=== PATIENT | female | born 1965 | race Caucasian/White ===

== ENCOUNTER 2023-07-20 13:18 | Outpatient (OUT) | payer BC, SELFPAY ==
--- NOTE | 2023-07-20 13:27 | MM_ITS ---
Patient: BELKYS HERNANDEZ Exam Date: 07/20/2023 : 1965 Gender:F Ordering : DR Lauro Fagan . Admission #: [id number] Family : Order #: [id number] CLICK HERE TO VIEW EXAM RADIOLOGY REPORT PROCEDURE: MM TOMOSYNTHESIS SCREENING BI COMPARISON: MG MAMM DX 3D RT CAD, 07/06/2021. MG MAMM SCREEN 3D COURTNEY CAD, 07/18/2022. INDICATIONS: Screening Calculator Name NCI Breast Cancer Risk Assessment Tool 5 Year Breast Cancer Risk 1.90% Lifetime Breast Cancer Risk 12.00% Personal Breast Cancer No Personal Ovarian Cancer No Treatments None Family Cancers Grandmother-paternal with ovarian cancer at age ~72; Aunt-paternal with uterine cancer at age ~72; Mother with colon cancer at age ~75; Father with colon cancer at age ~64; Aunt-maternal with liver cancer at age ~65. LOCATION: [facility] BREAST COMPOSITION: Heterogeneously dense,which may obscure small masses. FINDINGS: DIAGNOSTIC CATEGORY 2--BENIGN FINDING. NO CHANGE FROM COMPARISON. Scattered benign-appearing nodules are present. Scattered benign-appearing calcifications are present. Scattered benign-appearing lymph nodes are present. RIGHT BREAST: No significant suspicious finding. Stable micro clip marker upper outer quadrant, anterior breast LEFT BREAST: No significant suspicious finding. RECOMMENDATIONS: ROUTINE MAMMOGRAM AND CLINICAL EVALUATION IN 12 MONTHS. PLEASE NOTE: A NORMAL MAMMOGRAM DOES NOT EXCLUDE THE POSSIBILITY OF BREAST CANCER. A CLINICALLY SUSPICIOUS PALPABLE LUMP SHOULD BE BIOPSIED. Dictated by: Camden Contreras MD on 07/21/2023 at 08:54 Approved by: Camden Contreras MD on 07/21/2023 at 08:56
== END 2023-07-20 13:19 | disposition home or self-care (01) ==
LOC: MAMMO 13:22
PROVIDERS: PCP Family Medicine; Visit Provider Family Medicine
DX: Z12.31 Encounter for screening mammogram for malignant neoplasm of breast (principal); Z80.0 Family history of malignant neoplasm of digestive organs; Z80.41 Family history of malignant neoplasm of ovary; Z80.8 Family history of malignant neoplasm of other organs or systems
CPT/HCPCS: 77063; 77067

== ENCOUNTER 2023-11-13 10:53 | Outpatient (OUT) | payer BC, SELFPAY ==
[2023-11-13 11:17] LABS: Basophils Percent Auto 0.4 % (0.2-2.0); Eosinophils Absolute Auto 0.1 10^3/uL (0.0-0.7); Eosinophils Percent Auto 2.3 % (0.9-7.0); Hematocrit 42.8 % (36.0-48.0); Hemoglobin 13.6 g/dL (12.0-16.0); Immature Granulocytes Abs Auto 0.02 10^3/uL (0.00-0.03); Immature Granulocytes Pct Auto 0.4 % (0.0-0.5); Lymphocytes Absolute Auto 1.2 10^3/uL (1.2-3.8); Lymphocytes Percent Auto 21.1 % (20.5-60.0); Mean Corpuscular HGB Conc 31.8 g/dL (29.9-35.2); Mean Corpuscular Hemoglobin 29.1 pg (26.7-34.0); Mean Corpuscular Volume 91.5 fL (81.0-99.0); Mean Platelet Volume 9.6 fL (9.5-13.5); Monocytes Absolute Auto 0.5 10^3/uL (0.3-0.8); Monocytes Percent Auto 8.6 % (1.7-12.0); Neutrophils Absolute Auto 3.7 10^3/uL (1.4-6.5); Neutrophils Percent Auto 67.2 % (43.0-75.0); Platelet Count 231 10^3/uL (150-450); Red Blood Count 4.68 10^6/uL (4.20-5.40); White Blood Count 5.6 10^3/uL (4.0-11.0)
[2023-11-13 11:31] LABS: Estimated Average Glucose 114 mg/dL; Glycohemoglobin A1C 5.6 % (4.5-6.2)
[2023-11-13 12:12] LABS: Alanine Aminotransferase 60 U/L (14-59); Albumin Level 3.8 g/dL (3.4-5.0); Alkaline Phosphatase 124 U/L (46-116); Anion Gap 12.5; Aspartate Amino Transferase 24 U/L (15-37); BUN Creatinine Ratio 20.7; Bilirubin Total 0.4 mg/dL (0.2-1.0); Calcium 9.3 mg/dL (8.5-10.1); Carbon Dioxide 28.6 mmol/L (21.0-32.0); Chloride 104 mmol/L (98-107); Chol HDL Ratio 4.3; Cholesterol 231 mg/dL (<=200); Estimated GFR (African America >60 (>=60); Estimated GFR (Non-African Ame >60 (>=60); Free T3 2.45 pg/mL (2.18-3.98); Globulin 3.8 g/dL; Glucose 89 mg/dL (74-106); HDL Cholesterol 54 mg/dL (40-60); Potassium 4.1 mmol/L (3.5-5.1); Sodium 141 mmol/L (136-145); Thyroid Stimulating Hormone 1.929 uIU/mL (0.358-3.740); Total Protein 7.6 g/dL (6.4-8.2); Triglycerides 223 mg/dL (<=150); VLDL CHOLESTEROL 44.6 mg/dL
== END 2023-11-13 10:54 | disposition home or self-care (01) ==
LOC: LAB 10:53
PROVIDERS: PCP Family Medicine; Visit Provider Family Medicine
DX: Z00.00 Encounter for general adult medical examination without abnormal findings (principal); E78.5 Hyperlipidemia, unspecified; R73.09 Other abnormal glucose
CPT/HCPCS: 36415; 80053; 80061; 83036; 84436; 84443; 84481; 85025

== ENCOUNTER 2023-11-23 13:07 | Outpatient (OUT) | payer BC, SELFPAY ==
--- OUTSIDE RECORDS SUMMARY | 2023-11-23 13:10 | XMS_ITS | CCD ---
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 Name Role Phone RUDOLPH, DR LEVY Admitting Unavailable DR MILDRED GALDAMEZ Primary Care Unavailable RUDOLPH, DR LEVY Consulting Unavailable RUDOLPH, DR LEVY Attending Unavailable DANTE, DR JOSE LUIS Clements Consulting Unavailable DR MILDRED GADLAMEZ Primary Care Unavailable DR MILDRED GALDAMEZ Consulting Unavailable RUDOLPH, DR LEVY Attending Unavailable RUDOLPH, DR LEVY Admitting Unavailable Allergies Allergy Classification Reported Allergen(s) Allergy Type Date of Onset Reaction(s) Facility (1 source) Penicillins Drug allergy (disorder) 12-14-2015 [facility] Repository Problems Problem Classification Problem Date Documented Da te Episodic/Chronic Other screening for suspected conditions (not mental disorders or infectious disease) (4 sources) Encounter for screening mammogram for malignant neoplasm of breast; Translations: [ENC SCR MAMMO MALIG NEOPLASM BREAST] Onset: 07-18-2022 Episodic Residual codes; unclassified (1 source) Family history of malignant neoplasm of ovary; Translations: [FAM HX MALIGNANT NEOPLASM OVARY] Onset: 07-20-2022 Episodic Residual codes; unclassified (1 source) Family history of malignant neoplasm of digestive organs; Translations: [FAM HX MALIG NEOPLASM DIGESTIV ORGN] Onset: 07-20-2022 Episodic Residual codes; unclassified (1 source) Family history of malignant neoplasm of other organs or systems; Translations: [FAM HX MALIG NEOPLASM OTH ORGN/SYS] Onset: 07-20-2022 Episodic Results Test Name Value Interpretation Reference Range Facility CBC AUTO DIFFon 11-11-2022 BASO # 0.0 103/ul Normal 0.0-0.1 [facility] Comment on above: Performed By: #### C BC #### [facility] [address] [address] [address] Celsa Patterson Basophils/100 WBC (Bld) 0.5 % Normal 0.2-2.0 [facility] Comment on above: Performed By: #### C BC #### [facility] [address] [place] [address] Dr. Celsa Patterson EO # 0.1 103/ul Normal 0.0-0.7 [facility] Comment on above: Performed By: #### C BC #### [facility] [address] [place] [address] Dr. Celsa Patterson Eosinophils/100 WBC (Bld) 1.0 % Normal 0.9-7.0 [facility] Comment on above: Performed By: #### C BC #### [facility] [address] [place] [address] Dr. Celsa Patterson Erythrocyte distribution width (RBC) [Ratio] 13.4 % Normal 11.0-15.0 [facility] Comment on above: Performed By: #### C BC #### [facility] [address] [place] [address] Dr. Celsa Patterson Hematocrit (Bld) [Volume fraction] 43.1 % Normal 36.0-48.0 [facility] Comment on above: Performed By: #### C BC #### [facility] [address] [place] [address] Dr. Celsa Patterson Hemoglobin (Bld) [Mass/Vol] 14.1 g/dL Normal 12.0-16.0 [facility] Comment on above: Performed By: #### C BC #### [facility] [address] [place] [address] Dr. Celsa Patterson IG # 0.03 10e3/ul Normal 0.00-0.03 [facility] Comment on above: Performed By: #### C BC #### [facility] [address] [place] [address] Dr. Celsa Patterson IG % 0.5 % Normal 0.0-0.5 [facility] Comment on above: Performed By: #### C BC #### [facility] [address] [place] [address] Dr. Celsa Patterson LYMPH # 1.0 103/ul Critically low 1.2-3.8 [facility] Comment on above: Performed By: #### C BC #### [facility] [address] [place] [address] Dr. Celsa Patterson Lymphocytes/100 WBC (Bld) 15.8 % Critically low 20.5-60.0 [facility] Comment on above: Performed By: #### C BC #### [facility] [address] [place] [address] Dr. Celsa Patterson MANUAL DIFF REQ NO Normal [facility] Comment on above: Performed By: #### C BC #### [facility] [address] [place] [address] Dr. Celsa Patterson MCH (RBC) [Entitic mass] 29.0 pg Normal 26.7-34.0 [facility] Comment on above: Performed By: #### C BC #### [facility] [address] [place] [address] Dr. Celsa Patterson MCHC (RBC) [Mass/Vol] 32.7 g/dL Normal 29.9-35.2 [facility] Comment on above: Performed By: #### C BC #### [facility] [address] [place] [address] Dr. Celsa Patterson MCV (RBC) [Entitic vol] 88.7 fL Normal 81.0-99.0 [facility] Comment on above: Performed By: #### C BC #### [facility] [address] [place] [address] Dr. Celsa Patterson MONO # 0.5 103/ul Normal 0.3-0.8 [facility] Comment on above: Performed By: #### C BC #### [facility] [address] [place] [address] Dr. Celsa Patterson Monocytes/100 WBC (Bld) 8.7 % Normal 1.7-12.0 [facility] Comment on above: Performed By: #### C BC #### [facility] [address] [place] [address] Dr. Celsa Patterson NEUT # 4.5 103/ul Normal 1.4-6.5 [facility] Comment on above: Performed By: #### C BC #### [facility] [address] [address] [address] Celsa Patterson Neutrophils/100 WBC (Bld) 73.5 % Normal 43.0-75.0 [facility] Comment on above: Performed By: #### C BC #### [facility] [address] [address] [address] Celsa Patterson Platelet mean volume (Bld) [Entitic vol] 9.6 fL Normal 9.5-13.5 [facility] Comment on above: Performed By: #### C BC #### [facility] [address] [place] [address] Dr. Celsa Patterson PLT 259 103/ul Normal 150-450 [facility] Comment on above: Performed By: #### C BC #### [facility] [address] [place] [address] Dr. Celsa Patterson RBC 4.86 106/ul Normal 4.20-5.40 [facility] Comment on above: Performed By: #### C BC #### [facility] [address] [place] [address] Dr. Celsa Patterson WBC 6.1 103/ul Normal 4.0-11.0 [facility] Comment on above: Performed By: #### C BC #### [facility] [address] [place] [address] Dr. Celsa Patterson FREE THYROXINE INDEX T7on FTI 2.55 Normal 1.30-4.50 [facility] Comment on above: Performed By: #### C MP, T7, TSH, LIPID #### [facility] [address] [place] [address] Dr. Celsa Patterson T3U 30.0 % Normal 30.0-39.0 [facility] Comment on above: Performed By: #### C MP, T7, TSH, LIPID #### [facility] [address] [place] [address] Dr. Celsa Patterson T4 [Mass/Vol] 8.50 ug/dL Normal 4.80-13.90 [facility] Comment on above: Performed By: #### C MP, T7, TSH, LIPID #### [facility] [address] [place] [address] Dr. Celsa Patterson GLYCOHEMOGLOBIN A1Con 2021 ADA RECOMMENDATION SEE BELOW Normal [facility] Comment on above: Result Comment: ADA RECOMMENDED LIMIT 4.0 - 6.0 ADA THERAPEUTIC TARGET < 7.0 ACTION SUGGESTED > 7.0 Performed By: #### A 1C #### [facility] [address] [place] [address] Dr. Celsa Patterson Glucose [Mass/Vol] 108 mg/dL Normal [facility] Comment on above: Performed By: #### A 1C #### [facility] [address] [place] [address] Dr. Celsa Patterson HbA1c (Bld) [Mass fraction] 5.4 % Normal 4.5-6.2 [facility] Comment on above: Performed By: #### A 1C #### [facility] [address] [place] [address] Dr. Celsa Patterson IRONon 11-11-2022 Iron [Mass/Vol] 76.0 ug/dL Normal 50.0-170.0 [facility] Comment on above: Performed By: #### I CLINT LYNCH #### [facility] [address] [place] [address] Dr. Celsa Patterson LIPID PROFILEon 11-11-2022 CHOL-HDL RATIO NORM SEE BELOW Normal [facility] Comment on above: Result Comment: 3.3 - 4.4 LOW RISK 4.4 - 7.1 AVERAGE RISK 7.1 - 11.0 MODERATE RISK >11.0 HIGH RISK Performed By: #### C MP, T7, TSH, LIPID #### [facility] [address] [place] [address] Dr. Celsa Patterson Cholesterol [Mass/Vol] 227 mg/dL Critically high <=200 [facility] Comment on above: Performed By: #### C MP, T7, TSH, LIPID #### [facility] [address] [place] [address] Dr. Celsa Patterson Cholesterol in HDL [Mass/Vol] 63 mg/dL Critically high 40-60 [facility] Comment on above: Performed By: #### C MP, T7, TSH, LIPID #### [facility] [address] [address] [address] Celsa Patterson Cholesterol in LDL [Mass/Vol] 138.0 mg/dL Normal [facility] Comment on above: Performed By: #### C MP, T7, TSH, LIPID #### [facility] [address] [address] [address] Celsa Patterson Cholesterol.total/Cho lesterol in HDL [Mass ratio] 3.6 {ratio} Normal [facility] Comment on above: Performed By: #### C MP, T7, TSH, LIPID #### [facility] [address] [address] [address] Celsa Patterson HDL NORMAL > or = 60 mg/dl - LOW CARDIOVASCULAR RISK <40 mg/dl - HIGH CARDIOVASCULAR RISK Normal [facility] Comment on above: Performed By: #### C MP, T7, TSH, LIPID #### [facility] [address] [address] [address] Celsa Patterson LDL CALC NORMAL SEE BELOW Normal [facility] Comment on above: Result Comment: <100 mg/dl OPTIMAL 100 - 129 mg/dl NEAR OR ABOVE OPTIMAL 130 - 159 mg/dl BORDERLINE HIGH 160 - 189 mg/dl HIGH >190 mg/dl VERY HIGH Performed By: #### C MP, T7, TSH, LIPID #### [facility] [address] [address] [address] Celsa Patterson Triglyceride [Mass/Vol] 130 mg/dL Normal <=150 [facility] Comment on above: Performed By: #### C MP, T7, TSH, LIPID #### [facility] [address] [address] [address] Celsa Patterson VLDL CALC 26.0 mg/dL Normal [facility] Comment on above: Performed By: #### C MP, T7, TSH, LIPID #### [facility] [address] [address] [address] Celsa Patterson PROF 14(COMP METB)on 022 Albumin [Mass/Vol] 4.3 g/dL Normal 3.4-5.0 [facility] Comment on above: Performed By: #### C MP, T7, TSH, LIPID #### [facility] [address] [address] [address] Celsa Patterson Albumin/Globulin [Mass ratio] 1.2 {ratio} Normal [facility] Comment on above: Performed By: #### C MP, T7, TSH, LIPID #### [facility] [address] [place] [address] Dr. Celsa Patterson ALP [Catalytic activity/Vol] 126 U/L Critically high 46-116 [facility] Comment on above: Performed By: #### C MP, T7, TSH, LIPID #### [facility] [address] [place] [address] Dr. Celsa Patterson ALT [Catalytic activity/Vol] 43 U/L Normal 14-59 [facility] Comment on above: Performed By: #### C MP, T7, TSH, LIPID #### [facility] [address] [place] [address] Dr. Celsa Patterson Anion gap [Moles/Vol] 14.4 mmol/L Normal [facility] Comment on above: Performed By: #### C MP, T7, TSH, LIPID #### [facility] [address] [place] [address] Dr. Celsa Patterson AST [Catalytic activity/Vol] 26 U/L Normal 15-37 [facility] Comment on above: Performed By: #### C MP, T7, TSH, LIPID #### [facility] [address] [place] [address] Dr. Celsa Patterson Bilirubin [Mass/Vol] 0.5 mg/dL Normal 0.2-1.0 [facility] Comment on above: Performed By: #### C MP, T7, TSH, LIPID #### [facility] [address] [place] [address] Dr. Celsa Patterson Calcium [Mass/Vol] 9.4 mg/dL Normal 8.5-10.1 [facility] Comment on above: Performed By: #### C MP, T7, TSH, LIPID #### [facility] [address] [address] [address] Celsa Patterson Chloride [Moles/Vol] 104 mmol/L Normal 98-107 [facility] Comment on above: Performed By: #### C MP, T7, TSH, LIPID #### [facility] [address] [address] [address] Celsa Patterson CO2 [Moles/Vol] 27.8 mmol/L Normal 21.0-32.0 [facility] Comment on above: Performed By: #### C MP, T7, TSH, LIPID #### [facility] [address] [address] [address] Celsa Patterson Creatinine [Mass/Vol] 1.04 mg/dL Critically high 0.55-1.02 [facility] Comment on above: Performed By: #### C MP, T7, TSH, LIPID #### [facility] [address] [place] [address] Dr. Celsa Patterson EGFR-AF TAIWANESE >60 Normal >=60 [facility] Comment on above: Performed By: #### C MP, T7, TSH, LIPID #### [facility] [address] [place] [address] Dr. Celsa Patterson EGFR-NON AF TAIWANESE 55 mL/min/1.73m2 Critically low >=60 [facility] Comment on above: Performed By: #### C MP, T7, TSH, LIPID #### [facility] [address] [place] [address] Dr. Celsa Patterson Globulin (S) [Mass/Vol] 3.5 g/dL Normal [facility] Comment on above: Performed By: #### C MP, T7, TSH, LIPID #### [facility] [address] [place] [address] Dr. Celsa Patterson Glucose [Mass/Vol] 84 mg/dL Normal 74-106 [facility] Comment on above: Performed By: #### C MP, T7, TSH, LIPID #### [facility] [address] [place] [address] Dr. Celsa Patterson Potassium [Moles/Vol] 4.2 mmol/L Normal 3.5-5.1 [facility] Comment on above: Performed By: #### C MP, T7, TSH, LIPID #### [facility] [address] [address] [address] Celsa Patterson Protein [Mass/Vol] 7.8 g/dL Normal 6.4-8.2 [facility] Comment on above: Performed By: #### C MP, T7, TSH, LIPID #### [facility] [address] [address] [address] Celsa Patterson Sodium [Moles/Vol] 142 mmol/L Normal 136-145 [facility] Comment on above: Performed By: #### C MP, T7, TSH, LIPID #### [facility] [address] [place] [address] Dr. Celsa Patterson Urea nitrogen [Mass/Vol] 20.0 mg/dL Critically high 7.0-18.0 [facility] Comment on above: Performed By: #### C MP, T7, TSH, LIPID #### [facility] [address] [place] [address] Dr. Celsa Patterson Urea nitrogen/Creatinine [Mass ratio] 19.2 mg/mg Normal [facility] Comment on above: Performed By: #### C MP, T7, TSH, LIPID #### [facility] [address] [place] [address] Dr. Celsa Patterson TSHon 11-11-2022 TSH 3.238 uIU/mL Normal 0.358-3.[address] [facility] Comment on above: Performed By: #### C MP, T7, TSH, LIPID #### [facility] [address] [place] [address] Dr. Celsa Patterson VITAMIN D 25 OHon 11-11-2022 VIT D 25-OH 12.1 ng/mL Normal [facility] Comment on above: Performed By: #### I CRIS, VITAD #### [facility] [address] [place] [address] Dr. Celsa Patterson VIT D RANGES SEE BELOW Normal [facility] Comment on above: Result Comment: <20 ng/mL Vit D deficient 20 - <30 ng/mL Vit D insufficient 30 - 100 ng/mL Vit D sufficient >100 ng/mL Potential Toxicity Performed By: #### I CRIS VITAD #### [facility] [address] [address] [address] Celsa Patterson MG MAMM SCREEN 3D COURTNEY CADon 07-18-2022 MG MAMM SCREEN 3D COURTNEY CAD Patient: BELKYS HERNANDEZ Exam Date: 07/18/2022 : 1965 Gender:F Ordering : DR MILDRED GALDAMEZ . Admission #: [id number] Family : Order #: [id number] CLICK HERE TO VIEW EXAM RADIOLOGY REPORT PROCEDURE: MAMMOGRAM SCREENING 3D BILATERAL CAD COMPARISON: MG MAMM SCREEN COURTNEY W CAD, 12/31/2020. MG MAMM DX 3D RT CAD, 07/06/2021. MAMMO POST BIOPSY RIGHT, 01/08/2021. INDICATIONS: Screening mammography Calculator Name NCI Breast Cancer Risk Assessment Tool 5 Year Breast Cancer Risk 1.80% Lifetime Breast Cancer Risk 12.20% Personal Breast Cancer No Personal Ovarian Cancer No Treatments None Family Cancers Grandmother-paternal with ovarian cancer at age 72; Aunt-paternal with uterine cancer at age 72; Mother with colon cancer at age 75; Father with colon cancer at age 64; Aunt-maternal with liver cancer at age 65. LOCATION: [facility] BREAST COMPOSITION: Heterogeneously dense,which may obscure small masses. FINDINGS: DIAGNOSTIC CATEGORY 2--BENIGN FINDING: RIGHT BREAST: No significant suspicious finding. Stable biopsy marker clip anterior lower-outer quadrant. No significant change has occurred. LEFT BREAST: No significant suspicious finding. No significant change has occurred. RECOMMENDATIONS: ROUTINE MAMMOGRAM AND CLINICAL EVALUATION IN 12 MONTHS. PLEASE NOTE: A NORMAL MAMMOGRAM DOES NOT EXCLUDE THE POSSIBILITY OF BREAST CANCER. A CLINICALLY SUSPICIOUS PALPABLE LUMP SHOULD BE BIOPSIED. Dictated by: Jose Luis Waddell M.D. on 07/18/2022 at 11:03 Approved by: Jose Luis Waddell M.D. on 07/18/2022 at 11:07 Normal [facility] COVID-19 Antigenon COVID-19 Antigen Healthcare Worker?: N Reference Range: Negative Negative results, from patients with symptom onset beyond five days, should be treated as presumptive and confirmation with a molecular assay, if necessary, for patient management, may be performed. Negative results do not rule out COVID-19 and should not be used as the sole basis for treatment or patient management decisions, including infection control decisions. Negative results should be considered in the context of a patient's recent exposures, history and the presence of clinical signs and symptoms consistent with COVID-19. The [facility] SARS Antigen [employer] does not differentiate between SARS-CoV and SARS-CoV-2. This test was developed and its performance characteristic determined by [employer] and validated at [facility]. This test has not been FDA cleared or approved. This test has been authorized by FDA under an Emergency Use Authorization (EUA). This test has been validated in accordance with the FDA's Guidance Document (Policy for Diagnostics Testing in Laboratories Certified to Perform High Complexity Testing under CLIA prior to Emergency Use Authorization for Coronavirus Disease-2019 during the Public Health Emergency) issued on February 27, 2020. This test is only authorized for the duration of time the declaration that circumstances exist justifying the authorization of the emergency use of in vitro diagnostic tests for detection of SARS-CoV-2 virus and/or diagnosis of COVID-19 infection under section 564(b)(1) of the Act, 21 U.S.C. 360bbb-3(b)(1), unless the authorization is terminated or revoked sooner. SARS-CoV+SARS-CoV-2 (COVID-19) Ag [Presence] in Respiratory specimen by Rapid immunoassay Negative for SARS Antigen by [employer] PERFORMED BY: [place] [address] PATHOLOGIST DIAGRAMMER JENNI HERNANDEZ M.D. Normal [facility] Comment on above: Performed By: #### S OFIANEG, COVID-19 DENISSE #### [facility] [address] [facility] Ag Negativeon 05-16-20 22 [facility]isse Ag Negative Negative Normal Negative [facility] Comment on above: Result Comment: This is a duplicate [facility] SARS Antigen (TARIQ) result to be used for statistical tracking purpose only. PERFORMED BY: [place] [address] PATHOLOGIST DIAGRAMMER JENNI HERNANDEZ M.D. Performed By: #### S BRYANNA COVID-19 DENISSE #### [facility] [address] Encounters Encounter Date Encounter Type Care Provider Facility Start: 11-16-2022 Encounter for genera l adult medical examination without abnormal findings DR MILDRED GALDAMEZ [facility] Start: 11-11-2022 End: 11-12-[address] MILDRED GALDAMEZ Facility:[facility] Start: 11-11-2022 End: 11-12-2022 Encounter for general adult medical examination without abnormal findings DR MILDRED GALDAMEZ Facility:[facility] Start: 07-18-2022 End: 07-19-[address] MILDRED GALDAMEZ Facility:[facility] Payers Date Payer Category Payer Unknown [id number] 1965 Unknown [id number] 1957 Unknown [id number] Summary Purpose Family History No Family History Records FoundNo Family History Records Found Advance Directives No Advanced Directives Records FoundNo Advanced Directives Records Found Additional Source Comments INFORMATION SOURCE (unrecogn ized section and content) DATE CREATED AUTHOR 05/23/2022 [facility] DATE CREATED AUTHOR AUTHOR'S ORGANIZ ATION 11/18/2022 [facility] FOR RECORDS PERTAINING TO PATIENTS WHO ARE OR HAVE BEEN ENROLLED IN A CHEMICAL DEPENDENCY/SUBSTANCEABUSE PROGRAM, SOME INFORMATION MAY BE OMITTED. This clinical summary was aggregated from multiple sources. Caution should be exercised in using it in the provision of clinical care. This summary normalizes information from multiple sources, and as a consequence, information in this document may materially change the coding, format and clinical context of patient data. In addition, data may be omitted in some cases. CLINICAL DECISIONS SHOULD BE BASED ON THE PRIMARY CLINICAL RECORDS. [employer] provides no warranty or guarantee of the accuracy or completeness of information in this document.
[2023-11-23 13:45] LABS: Alanine Aminotransferase 66 U/L (14-59); Albumin Level 3.7 g/dL (3.4-5.0); Alkaline Phosphatase 137 U/L (46-116); Aspartate Amino Transferase 24 U/L (15-37); Bilirubin Direct 0.1 mg/dL (0.0-0.2); Bilirubin Total 0.2 mg/dL (0.2-1.0); Globulin 3.7 g/dL; Total Protein 7.4 g/dL (6.4-8.2)
[2023-11-24 11:08] LABS: HBsAg Screen Negative (Negative); HCV Ab Non Reactive (Non Reactive); Hep A Ab, IgM Negative (Negative); Hep B Core Ab, IgM Negative (Negative)
== END 2023-11-23 13:08 | disposition home or self-care (01) ==
LOC: LAB 13:07
PROVIDERS: PCP Family Medicine; Visit Provider Family Medicine
DX: R79.89 Other specified abnormal findings of blood chemistry (principal)
CPT/HCPCS: 36415; 80074; 80076

== ENCOUNTER 2023-11-30 12:54 | Outpatient (OUT) | payer BC, SELFPAY ==
--- NOTE | 2023-11-30 12:57 | US_ITS ---
The [address] [address] Patient Name: BELKYS HERNANDEZ MRN: [id number] date: 1965 Sex: F Assigned Patient Location: [place] Current Patient Location: [place] Accession/Order Number: [id number] Exam Date: 11/30/2023 13:03 Report Date: 11/30/2023 14:57 At the request of: MILDRED GALDAMEZ Procedure: US right upper quadrant EXAM: US right upper quadrant HISTORY: elevated liver function tests R79.89 COMPARISON: None. TECHNIQUE: Grayscale, color and Doppler FINDINGS: The liver is normal in size and contour. Diffuse increase in echotexture. 1 cm area of hypoechogenicity adjacent to the gallbladder, focal fatty infiltration favored. Hepatopedal flow in the main portal vein. The gallbladder is normal in size. Negative sonographic Richards sign. The wall measures 1 mm. The common bile duct measures 2.3 mm. The visualized pancreas is normal. The right kidney is normal measuring 10.5 x 5.0 x 4.3 cm US/US right upper quadrant IMPRESSION: Increased hepatic echotexture suggesting hepatic steatosis Electronically authenticated by: FRANCISCO JAVIER RUDD Date: 11/30/2023 14:57
== END 2023-11-30 12:55 | disposition home or self-care (01) ==
LOC: US 12:54
PROVIDERS: PCP Family Medicine; Visit Provider Family Medicine
DX: R79.89 Other specified abnormal findings of blood chemistry (principal)
CPT/HCPCS: 76705

== ENCOUNTER 2024-08-15 09:33 | Outpatient (OUT) | payer BC, SELFPAY ==
--- NOTE | 2024-08-15 09:37 | MM_ITS ---
Patient Name: BELKYS HERNANDEZ MR#: [id number] : 1965 Exam Date: 08/15/2024 Ordering Doctor: DR Lauro Fagan . RADIOLOGY REPORT PROCEDURE: MM TOMOSYNTHESIS SCREENING BI COMPARISON: MG MAMM SCREEN 3D COURTNEY CAD, 07/18/2022. MM TOMOSYNTHESIS SCREENING BI, 07/20/2023. INDICATIONS: screening for malignant neoplasm of breast Calculator Name NCI Breast Cancer Risk Assessment Tool 5 Year Breast Cancer Risk 2.00% Lifetime Breast Cancer Risk 11.70% Personal Breast Cancer No Personal Ovarian Cancer No Treatments None Family Cancers Grandmother-paternal with ovarian cancer at age ~72; Aunt-paternal with uterine cancer at age ~72; Mother with colon cancer at age ~75; Father with colon cancer at age ~64; Aunt-maternal with liver cancer at age ~65. LOCATION: [facility] BREAST COMPOSITION: The breasts are heterogeneously dense,which may obscure small masses. FINDINGS: DIAGNOSTIC CATEGORY 2--BENIGN FINDING. NO CHANGE FROM COMPARISON. Scattered benign-appearing calcifications are present. Scattered benign-appearing lymph nodes are present. Scattered benign-appearing nodules are present. RIGHT BREAST: No significant suspicious finding. LEFT BREAST: No significant suspicious finding. RECOMMENDATIONS: ROUTINE MAMMOGRAM AND CLINICAL EVALUATION IN 12 MONTHS. PLEASE NOTE: A NORMAL MAMMOGRAM DOES NOT EXCLUDE THE POSSIBILITY OF BREAST CANCER. A CLINICALLY SUSPICIOUS PALPABLE LUMP SHOULD BE BIOPSIED. Dictated by: Camden Contreras MD on 08/15/2024 at 10:40 Approved by: Camden Contreras MD on 08/15/2024 at 10:41
--- OUTSIDE RECORDS SUMMARY | 2024-08-15 09:37 | XMS_ITS | CCD ---
Author Organization [facility] Care Team Providers Care Bobcat Operator Name Role Phone DR MILDRED GALDAMEZ Admitting Unavailable DR MILDRED GALDAMEZ Primary Care Unavailable DR MILDRED GALDAMEZ Consulting Unavailable DR MILDRED GALDAMEZ Attending Unavailable DR JOSE LUIS WADDELL Consulting Unavailable DR MILDRED GALDAMEZ Primary Care Unavailable DR MILDRED GALDAMEZ Consulting Unavailable DR MILDRED GALDAMEZ Attending Unavailable DR MILDRED GALDAMEZ Admitting Unavailable Allergies Allergy Classification Reported Allergen(s) Allergy Type Date of Onset Reaction(s) Facility (1 source) Penicillins Drug allergy (disorder) 12-14-2015 [facility] Repository Problems Problem Classification Problem Date Documented [...] 11-11-2022 BASO # 0.0 103/ul Normal 0.0-0.1 [facility] Comment on above: Performed By: #### C BC #### [facility] [address] [place], [place] [address] Dr. Celsa Patterson Basophils/100 WBC (Bld) 0.5 % Normal 0.2-2.0 [facility] Comment on above: Performed By: #### C BC #### [facility] [address] [place] [address] Dr. Celsa Patterson EO # 0.1 103/ul Normal 0.0-0.7 [facility] Comment on above: Performed By: #### C BC #### [facility] [address] [place] [address] Dr. Celsa Patterson Eosinophils/100 WBC (Bld) 1.0 % Normal 0.9-7.0 [facility] Comment on above: Performed By: #### C BC #### [facility] [address] [place] [address] Dr. Celsa Patterson Erythrocyte distribution width (RBC) [Ratio] 13.4 % Normal 11.0-15.0 [facility] Comment on above: Performed By: #### C BC #### [facility] [address] [place] [address] Dr. Celsa Patterson Hematocrit (Bld) [Volume fraction] 43.1 % Normal 36.0-48.0 [facility] Comment on above: Performed By: #### C BC #### [facility] [address] [place] [address] Dr. Celsa Patterson Hemoglobin (Bld) [Mass/Vol] 14.1 g/dL Normal 12.0-16.0 [facility] Comment on above: Performed By: #### C BC #### [facility] [address] [place] [address] Dr. Celsa Patterson IG # 0.03 10e3/ul Normal 0.00-0.03 [facility] Comment on above: Performed By: #### C BC #### [facility] [address] [place] [address] Dr. Celsa Patterson IG % 0.5 % Normal 0.0-0.5 [facility] Comment on above: Performed By: #### C BC #### [facility] [address] [place] [address] Dr. Celsa Patterson LYMPH # 1.0 103/ul Critically low 1.2-3.8 [facility] Comment on above: Performed By: #### C BC #### [facility] [address] [place] [address] Dr. Celsa Patterson Lymphocytes/100 WBC (Bld) 15.8 % Critically low 20.5-60.0 [facility] Comment on above: Performed By: #### C BC #### [facility] [address] [place] [address] Dr. Celas Patterson MANUAL DIFF REQ NO Normal [facility] Comment on above: Performed By: #### C BC #### [facility] [address] [place] [address] Dr. Celsa Patterson MCH (RBC) [Entitic mass] 29.0 pg Normal 26.7-34.0 [facility] Comment on above: Performed By: #### C BC #### [facility] [address] [place] [address] Dr. Celsa Patterson MCHC (RBC) [Mass/Vol] 32.7 g/dL Normal 29.9-35.2 [facility] Comment on above: Performed By: #### C BC #### [facility] [address] [place] [address] Dr. Celsa Patterson MCV (RBC) [Entitic vol] 88.7 fL Normal 81.0-99.0 [facility] Comment on above: Performed By: #### C BC #### [facility] [address] [place] [address] Dr. Celsa Patterson MONO # 0.5 103/ul Normal 0.3-0.8 [facility] Comment on above: Performed By: #### C BC #### [facility] [address] [place] [address] Dr. Celsa Patterson Monocytes/100 WBC (Bld) 8.7 % Normal 1.7-12.0 [facility] Comment on above: Performed By: #### C BC #### [facility] [address] [place] [address] Dr. Celsa Patterson NEUT # 4.5 103/ul Normal 1.4-6.5 [facility] Comment on above: Performed By: #### C BC #### [facility] [address] [place] [address] Dr. Celsa Patterson Neutrophils/100 WBC (Bld) 73.5 % Normal 43.0-75.0 [facility] Comment on above: Performed By: #### C BC #### [facility] [address] [place] [address] Dr. Celsa Patterson Platelet mean volume (Bld) [Entitic vol] 9.6 fL Normal 9.5-13.5 [facility] Comment on above: Performed By: #### C BC #### [facility] [address] [place] [address] Dr. Celsa Patterson PLT 259 103/ul Normal 150-450 [facility] Comment on above: Performed By: #### C BC #### [facility] [address] [place] [address] Dr. Celsa Patterson RBC 4.86 106/ul Normal 4.20-5.40 [facility] Comment on above: Performed By: #### C BC #### [facility] [address] [place] [address] Dr. Celsa Patterson WBC 6.1 103/ul Normal 4.0-11.0 [facility] Comment on above: Performed By: #### C BC #### [facility] [address] [place] [address] Dr. Celsa Patterson FREE THYROXINE INDEX T7on FTI 2.55 Normal 1.30-4.50 [facility] Comment on above: Performed By: #### C MP, T7, TSH, LIPID #### [facility] [address] [place] [address] Dr. Celsa Patterson T3U 30.0 % Normal 30.0-39.0 [facility] Comment on above: Performed By: #### C MP, T7, TSH, LIPID #### [facility] [address] [place] [address] Dr. Celsa Patterson T4 [Mass/Vol] 8.50 ug/dL Normal 4.80-13.90 [facility] Comment on above: Performed By: #### C MP, T7, TSH, LIPID #### [facility] [address] [place] [address] [address] Celsa Patterson GLYCOHEMOGLOBIN A1Con 2021 ADA RECOMMENDATION SEE BELOW Normal [facility] Comment on above: Result Comment: ADA RECOMMENDED LIMIT 4.0 - 6.0 ADA THERAPEUTIC TARGET < 7.0 ACTION SUGGESTED > 7.0 Performed By: #### A 1C #### [facility] [address] [place] [address] [address] Celsa Patterson Glucose [Mass/Vol] 108 mg/dL Normal [facility] Comment on above: Performed By: #### A 1C #### [facility] [address] [place] [address] Dr. Celsa Patterson HbA1c (Bld) [Mass fraction] 5.4 % Normal 4.5-6.2 [facility] Comment on above: Performed By: #### A 1C #### [facility] [address] [place] [address] Dr. Celsa Patterson IRONon 11-11-2022 Iron [Mass/Vol] 76.0 ug/dL Normal 50.0-170.0 [facility] Comment on above: Performed By: #### I CLINT LYNCH #### [facility] [address] [place] [address] Dr. Celsa Patterson LIPID PROFILEon 11-11-2022 CHOL-HDL RATIO NORM SEE BELOW Normal [facility] Comment on above: Result Comment: 3.3 - 4.4 LOW RISK 4.4 - 7.1 AVERAGE RISK 7.1 - 11.0 MODERATE RISK >11.0 HIGH RISK Performed By: #### C MP, T7, TSH, LIPID #### [facility] [address] [place] [address] [address] Celsa Patterson Cholesterol [Mass/Vol] 227 mg/dL Critically high <=200 [facility] Comment on above: Performed By: #### C MP, T7, TSH, LIPID #### [facility] [address] [place] [address] Dr. Celsa Patterson Cholesterol in HDL [Mass/Vol] 63 mg/dL Critically high 40-60 [facility] Comment on above: Performed By: #### C MP, T7, TSH, LIPID #### [facility] [address] [place] [address] [address] Celsa Patterson Cholesterol in LDL [Mass/Vol] 138.0 mg/dL Normal [facility] Comment on above: Performed By: #### C MP, T7, TSH, LIPID #### [facility] [address] [place] [address] [address] Celsa Patterson Cholesterol.total/Cho lesterol in HDL [Mass ratio] 3.6 {ratio} Normal [facility] Comment on above: Performed By: #### C MP, T7, TSH, LIPID #### [facility] [address] [place] [address] [address] Celsa Patterson HDL NORMAL > or = 60 mg/dl - LOW CARDIOVASCULAR RISK <40 mg/dl - HIGH CARDIOVASCULAR RISK Normal [facility] Comment on above: Performed By: #### C MP, T7, TSH, LIPID #### [facility] [address] [place] [address] [address] Celsa Patterson LDL CALC NORMAL SEE BELOW Normal [facility] Comment on above: Result Comment: <100 mg/dl OPTIMAL 100 - 129 mg/dl NEAR OR ABOVE OPTIMAL 130 - 159 mg/dl BORDERLINE HIGH 160 - 189 mg/dl HIGH >190 mg/dl VERY HIGH Performed By: #### C MP, T7, TSH, LIPID #### [facility] [address] [place] [address] [address] Celsa Patterson Triglyceride [Mass/Vol] 130 mg/dL Normal <=150 [facility] Comment on above: Performed By: #### C MP, T7, TSH, LIPID #### [facility] [address] [place] [address] [address] Celsa Patterson VLDL CALC 26.0 mg/dL Normal [facility] Comment on above: Performed By: #### C MP, T7, TSH, LIPID #### [facility] [address] [place] [address] [address] Celsa Patterson PROF 14(COMP METB)on 022 Albumin [Mass/Vol] 4.3 g/dL Normal 3.4-5.0 [facility] Comment on above: Performed By: #### C MP, T7, TSH, LIPID #### [facility] [address] [place] [address] Dr. Celsa Patterson Albumin/Globulin [Mass ratio] 1.2 {ratio} Normal [facility] Comment on above: Performed By: #### C MP, T7, TSH, LIPID #### [facility] [address] [place] [address] Dr. Celsa Patterson ALP [Catalytic activity/Vol] 126 U/L Critically high 46-116 [facility] Comment on above: Performed By: #### C MP, T7, TSH, LIPID #### [facility] [address] [place] [address] Dr. Celsa Patterson ALT [Catalytic activity/Vol] 43 U/L Normal 14-59 [facility] Comment on above: Performed By: #### C MP, T7, TSH, LIPID #### [facility] [address] [place] [address] Dr. Celsa Patterson Anion gap [Moles/Vol] 14.4 mmol/L Normal [facility] Comment on above: Performed By: #### C MP, T7, TSH, LIPID #### [facility] [address] [place] [address] Dr. Celsa Patterson AST [Catalytic activity/Vol] 26 U/L Normal 15-37 [facility] Comment on above: Performed By: #### C MP, T7, TSH, LIPID #### [facility] [address] [place] [address] Dr. Celsa Patterson Bilirubin [Mass/Vol] 0.5 mg/dL Normal 0.2-1.0 [facility] Comment on above: Performed By: #### C MP, T7, TSH, LIPID #### [facility] [address] [place] [address] Dr. Celsa Patterson Calcium [Mass/Vol] 9.4 mg/dL Normal 8.5-10.1 [facility] Comment on above: Performed By: #### C MP, T7, TSH, LIPID #### [facility] [address] [place] [address] [address] Celsa Patterson Chloride [Moles/Vol] 104 mmol/L Normal 98-107 [facility] Comment on above: Performed By: #### C MP, T7, TSH, LIPID #### [facility] [address] [place] [address] [address] Celsa Patterson CO2 [Moles/Vol] 27.8 mmol/L Normal 21.0-32.0 [facility] Comment on above: Performed By: #### C MP, T7, TSH, LIPID #### [facility] [address] [place] [address] [address] Celsa Patterson Creatinine [Mass/Vol] 1.04 mg/dL Critically high 0.55-1.02 [facility] Comment on above: Performed By: #### C MP, T7, TSH, LIPID #### [facility] [address] [place] [address] Dr. Celsa Patterson EGFR-AF TAJIK >60 Normal >=60 [facility] Comment on above: Performed By: #### C MP, T7, TSH, LIPID #### [facility] [address] [place] [address] [address] Celsa Patterson EGFR-NON AF TAJIK 55 mL/min/1.73m2 Critically low >=60 [facility] Comment on above: Performed By: #### C MP, T7, TSH, LIPID #### [facility] [address] [place] [address] [address] Celsa Patterson Globulin (S) [Mass/Vol] 3.5 g/dL Normal [facility] Comment on above: Performed By: #### C MP, T7, TSH, LIPID #### [facility] [address] [place] [address] [address] Celsa Patterson Glucose [Mass/Vol] 84 mg/dL Normal 74-106 [facility] Comment on above: Performed By: #### C MP, T7, TSH, LIPID #### [facility] [address] [place] [address] [address] Celsa Patterson Potassium [Moles/Vol] 4.2 mmol/L Normal 3.5-5.1 [facility] Comment on above: Performed By: #### C MP, T7, TSH, LIPID #### [facility] [address] [place] [address] [address] Celsa Patterson Protein [Mass/Vol] 7.8 g/dL Normal 6.4-8.2 [facility] Comment on above: Performed By: #### C MP, T7, TSH, LIPID #### [facility] [address] [place] [address] Dr. Celsa Patterson Sodium [Moles/Vol] 142 mmol/L Normal 136-145 [facility] Comment on above: Performed By: #### C MP, T7, TSH, LIPID #### [facility] [address] [place] [address] Dr. Celsa Patterson Urea nitrogen [Mass/Vol] 20.0 mg/dL Critically high 7.0-18.0 [facility] Comment on above: Performed By: #### C MP, T7, TSH, LIPID #### [facility] [address] [place] [address] Dr. Celsa Patterson Urea nitrogen/Creatinine [Mass ratio] 19.2 mg/mg Normal [facility] Comment on above: Performed By: #### C MP, T7, TSH, LIPID #### [facility] [address] [place] [address] Dr. Celsa Ptaterson TSHon 11-11-2022 TSH 3.238 uIU/mL Normal 0.358-3.740 [facility] Comment on above: Performed By: #### C MP, T7, TSH, LIPID #### [facility] [address] [place] [address] Dr. Celsa Patterson VITAMIN D 25 OHon 11-11-2022 VIT D 25-OH 12.1 ng/mL Normal [facility] Comment on above: Performed By: #### I CRIS, VITAD #### [facility] [address] [place] [address] Dr. Celsa Patterson VIT D RANGES SEE BELOW Normal [facility] Comment on above: Result Comment: <20 ng/mL Vit D deficient 20 - <30 ng/mL Vit D insufficient 30 - 100 ng/mL Vit D sufficient >100 ng/mL Potential Toxicity Performed By: #### I CRIS, VITAD #### [facility] [address] [place] [address] [address] Celsa Patterson MG MAMM SCREEN 3D COURTNEY CADon 07-18-2022 MG MAMM SCREEN 3D COURTNEY CAD Patient: BELKYS HERNANDEZ Exam Date: 07/18/2022 : 1965 Gender:F Ordering : DR MILDRED GALDAMEZ . Admission #: [id number] Family : Order #: [id number] CLICK HERE TO VIEW EXAM RADIOLOGY REPORT [...] liver cancer at age 67. LOCATION: [facility] BREAST COMPOSITION: Heterogeneously dense,which may obscure small [...] LUMP SHOULD BE BIOPSIED. Dictated by: Jose Lusi Waddell M.D. on 07/18/2022 at 11:03 Approved by: Jose Luis Waddell M.D. on 07/18/2022 at 11:07 Normal [facility] COVID-19 Antigenon 2 COVID-19 Antigen Healthcare Worker?: N Reference Range: [...] developed and its performance characteristic determined by [employer] and validated at [facility]. This test has not been FDA [...] for SARS Antigen by [employer] PERFORMED BY: [place] [address] PATHOLOGIST PUBLIC SPEAKING TEACHER JENNI HERNANDEZ M.D. Normal [facility] Comment on above: Performed By: #### S OFANNAEG, COVID-19 DENISSE #### [facility] [address] Denisse Ag Negativeon 05-16-20 22 Denisse Ag Negative Negative Normal Negative [facility] Comment on above: Result Comment: This is a duplicate Denisse SARS Antigen ([employer]) result to be used for statistical tracking purpose only. PERFORMED BY: [facility] [address] [place] [address] PATHOLOGIST PUBLIC SPEAKING TEACHER JENNI HERNANDEZ M.D. Performed By: #### S OFLAUREN, COVID-19 DENISSE #### [facility] [address] Encounters Encounter Date Encounter Type Care Provider Facility Start: 11-16-2022 Encounter for genera l adult medical examination without abnormal findings DR MILDRED GALDAMEZ [facility] Start: 11-11-2022 End: 11-12-[address] MILDRED GALDAMEZ Facility:[facility] Start: 11-11-2022 End: 11-12-2022 Encounter for general adult medical examination without abnormal findings DR MILDRED GALDAMEZ Facility:[facility] Start: 07-18-2022 End: 07-19-[address] MILDRED GALDAMEZ Facility:[facility] Payers Date Payer Category Payer Unknown [id number] 1965 Unknown [id number] 1957 Unknown [id number] Summary Purpose Family History No Family History Records FoundNo Family History Records Found Advance Directives No Advanced Directives Records FoundNo Advanced Directives Records Found Additional Source Comments INFORMATION SOURCE (unrecogn ized section and content) DATE CREATED AUTHOR 05/23/2022 [facility] DATE CREATED AUTHOR AUTHOR'S SANA ATION 11/18/2022 [facility] FOR RECORDS PERTAINING TO PATIENTS WHO ARE [...] BE BASED ON THE PRIMARY CLINICAL RECORDS. [employer] provides no warranty or guarantee of the accuracy or completeness of information in this document.
== END 2024-08-15 09:34 | disposition home or self-care (01) ==
LOC: MAMMO 09:34
PROVIDERS: PCP Family Medicine; Visit Provider Family Medicine
DX: Z12.31 Encounter for screening mammogram for malignant neoplasm of breast (principal); Z80.41 Family history of malignant neoplasm of ovary; Z80.8 Family history of malignant neoplasm of other organs or systems; Z80.0 Family history of malignant neoplasm of digestive organs
CPT/HCPCS: 77063; 77067

== ENCOUNTER 2025-01-17 10:33 | Outpatient (OUT) | payer BC, SELFPAY ==
--- OUTSIDE RECORDS SUMMARY | 2025-01-17 10:37 | XMS_ITS | CCD ---
Author Organization [facility] Care Team Providers Care Community Board Member Name Role Phone DR MILDRED GALDAMEZ Admitting [...] source) Penicillins Drug allergy (disorder) 12-14-2015 [facility] Repository Problems Problem Classification Problem Date [...] 11-11-2022 BASO # 0.0 103/ul Normal 0.0-0.1 [facility] Comment on above: Performed By: #### C BC #### [facility] [address], [place] [address] Dr. Celsa Patterson Basophils/100 WBC (Bld) 0.5 % Normal 0.2-2.0 [facility] Comment on above: Performed By: #### C BC #### [facility] [address] [place] [address] Dr. Celsa Patterson EO # 0.1 103/ul Normal 0.0-0.7 [facility] Comment on above: Performed By: #### C BC #### [facility] [address] [place] [address] Dr. Celsa Patterson Eosinophils/100 WBC (Bld) 1.0 % Normal 0.9-7.0 [facility] Comment on above: Performed By: #### C BC #### [facility] [address] [place] [address] Dr. Celsa Patterson Erythrocyte distribution width (RBC) [Ratio] 13.4 % Normal 11.0-15.0 [facility] Comment on above: Performed By: #### C BC #### [facility] [address] [place] [address] Dr. Celsa Patterson Hematocrit (Bld) [Volume fraction] 43.1 % Normal 36.0-48.0 [facility] Comment on above: Performed By: #### C BC #### [facility] [address] [place] [address] Dr. Celsa Patterson Hemoglobin (Bld) [Mass/Vol] 14.1 g/dL Normal 12.0-16.0 [facility] Comment on above: Performed By: #### C BC #### [facility] [address] [place] [address] Dr. Celsa Patterson IG # 0.03 10e3/ul Normal 0.00-0.03 [facility] Comment on above: Performed By: #### C BC #### [facility] [address] [place] [address] Dr. Celsa Patterson IG % 0.5 % Normal 0.0-0.5 [facility] Comment on above: Performed By: #### C BC #### [facility] [address] [place] [address] Dr. Celsa Patterson LYMPH # 1.0 103/ul Critically low 1.2-3.8 [facility] Comment on above: Performed By: #### C BC #### [facility] [address] [place] [address] Dr. Celsa Patterson Lymphocytes/100 WBC (Bld) 15.8 % Critically low 20.5-60.0 [facility] Comment on above: Performed By: #### C BC #### [facility] [address] [place] [address] Dr. Celsa Patterson MANUAL DIFF REQ NO Normal [facility] Comment on above: Performed By: #### C BC #### [facility] [address] [place] [address] Dr. Celsa Patterson MCH (RBC) [Entitic mass] 29.0 pg Normal 26.7-34.0 [facility] Comment on above: Performed By: #### C BC #### [facility] [address] [place] [address] Dr. Celsa Patterson MCHC (RBC) [Mass/Vol] 32.7 g/dL Normal 29.9-35.2 [facility] Comment on above: Performed By: #### C BC #### [facility] [address] [place] [address] Dr. Celsa Patterson MCV (RBC) [Entitic vol] 88.7 fL Normal 81.0-99.0 [facility] Comment on above: Performed By: #### C BC #### [facility] [address] [place] [address] Dr. Cesla Patterson MONO # 0.5 103/ul Normal 0.3-0.8 [facility] Comment on above: Performed By: #### C BC #### [facility] [address] [place] [address] Dr. Celsa Patterson Monocytes/100 WBC (Bld) 8.7 % Normal 1.7-12.0 [facility] Comment on above: Performed By: #### C BC #### [facility] [address] [place] [address] Dr. Celsa Patterson NEUT # 4.5 103/ul Normal 1.4-6.5 [facility] Comment on above: Performed By: #### C BC #### [facility] [address] [place] [address] Dr. Celsa Patterson Neutrophils/100 WBC (Bld) 73.5 % Normal 43.0-75.0 [facility] Comment on above: Performed By: #### C BC #### [facility] [address] [place] [address] Dr. Celsa Patterson Platelet mean volume (Bld) [Entitic vol] 9.6 fL Normal 9.5-13.5 [facility] Comment on above: Performed By: #### C BC #### [facility] [address] [place] [address] Dr. Celsa Patterson PLT 259 103/ul Normal 150-450 [facility] Comment on above: Performed By: #### C BC #### [facility] [address] [place] [address] Dr. Celsa Patterson RBC 4.86 106/ul Normal 4.20-5.40 [facility] Comment on above: Performed By: #### C BC #### [facility] [address] [place] [address] Dr. Celsa Patterson WBC 6.1 103/ul Normal 4.0-11.0 [facility] Comment on above: Performed By: #### C BC #### [facility] [address] [place] [address] Dr. Celsa Patterson FREE THYROXINE INDEX T7on FTI 2.55 Normal 1.30-4.50 [facility] Comment on above: Performed By: #### C MP, T7, TSH, LIPID #### [facility] [address] [place] [address] Dr. Celsa Patterson T3U 30.0 % Normal 30.0-39.0 [facility] Comment on above: Performed By: #### C MP, T7, TSH, LIPID #### [facility] [address] [place] [address] Dr. Celsa Patterson T4 [Mass/Vol] 8.50 ug/dL Normal 4.80-13.90 [facility] Comment on above: Performed By: #### C MP, T7, TSH, LIPID #### [facility] [address] [place] [address] [address] Celsa Patterson GLYCOHEMOGLOBIN A1Con 2021 ADA RECOMMENDATION SEE BELOW Normal [facility] Comment on above: Result Comment: ADA RECOMMENDED LIMIT 4.0 - 6.0 ADA THERAPEUTIC TARGET < 7.0 ACTION SUGGESTED > 7.0 Performed By: #### A 1C #### [facility] [address] [place] [address] [address] Celsa Patterson Glucose [Mass/Vol] 108 mg/dL Normal [facility] Comment on above: Performed By: #### A 1C #### [facility] [address] [place] [address] Dr. Celsa Patterson HbA1c (Bld) [Mass fraction] 5.4 % Normal 4.5-6.2 [facility] Comment on above: Performed By: #### A 1C #### [facility] [address] [place] [address] Dr. Celsa Patterson IRONon 11-11-2022 Iron [Mass/Vol] 76.0 ug/dL Normal 50.0-170.0 [facility] Comment on above: Performed By: #### I CLINT LYNCH #### [facility] [address] [place] [address] Dr. Celsa Patterson LIPID PROFILEon 11-11-2022 CHOL-HDL RATIO NORM SEE BELOW Normal [facility] Comment on above: Result Comment: 3.3 - 4.4 LOW RISK 4.4 - 7.1 AVERAGE RISK 7.1 - 11.0 MODERATE RISK >11.0 HIGH RISK Performed By: #### C MP, T7, TSH, LIPID #### [facility] [address] [place] [address] [address] Celsa Patterson Cholesterol [Mass/Vol] 227 mg/dL Critically high <=200 [facility] Comment on above: Performed By: #### C MP, T7, TSH, LIPID #### [facility] [address] [place] [address] Dr. Celsa Patterson Cholesterol in HDL [Mass/Vol] 63 mg/dL Critically high 40-60 [facility] Comment on above: Performed By: #### C MP, T7, TSH, LIPID #### [facility] [address] [place] [address] [address] Celsa Patterson Cholesterol in LDL [Mass/Vol] 138.0 mg/dL Normal [facility] Comment on above: Performed By: #### C MP, T7, TSH, LIPID #### [facility] [address] [place] [address] [address] Celsa Patterson Cholesterol.total/Cho lesterol in HDL [Mass ratio] 3.6 {ratio} Normal [facility] Comment on above: Performed By: #### C MP, T7, TSH, LIPID #### [facility] [address] [place] [address] [address] Celsa Patterson HDL NORMAL > or = 60 mg/dl - LOW CARDIOVASCULAR RISK <40 mg/dl - HIGH CARDIOVASCULAR RISK Normal [facility] Comment on above: Performed By: #### C MP, T7, TSH, LIPID #### [facility] [address] [place] [address] [address] Celsa Patterson LDL CALC NORMAL SEE BELOW Normal [facility] Comment on above: Result Comment: <100 mg/dl OPTIMAL 100 - 129 mg/dl NEAR OR ABOVE OPTIMAL 130 - 159 mg/dl BORDERLINE HIGH 160 - 189 mg/dl HIGH >190 mg/dl VERY HIGH Performed By: #### C MP, T7, TSH, LIPID #### [facility] [address] [place] [address] [address] Celsa Patterson Triglyceride [Mass/Vol] 130 mg/dL Normal <=150 [facility] Comment on above: Performed By: #### C MP, T7, TSH, LIPID #### [facility] [address] [place] [address] [address] Celsa Patterson VLDL CALC 26.0 mg/dL Normal [facility] Comment on above: Performed By: #### C MP, T7, TSH, LIPID #### [facility] [address] [place] [address] [address] Celsa Patterson PROF 14(COMP METB)on 022 Albumin [Mass/Vol] 4.3 g/dL Normal 3.4-5.0 [facility] Comment on above: Performed By: #### C MP, T7, TSH, LIPID #### [facility] [address] [place] [address] Dr. Celsa Patterson Albumin/Globulin [Mass ratio] 1.2 {ratio} Normal [facility] Comment on above: Performed By: #### C MP, T7, TSH, LIPID #### [facility] [address] [place] [address] Dr. Celsa Patterson ALP [Catalytic activity/Vol] 126 U/L Critically high 46-116 [facility] Comment on above: Performed By: #### C MP, T7, TSH, LIPID #### [facility] [address] [place] [address] Dr. Celsa Patterson ALT [Catalytic activity/Vol] 43 U/L Normal 14-59 [facility] Comment on above: Performed By: #### C MP, T7, TSH, LIPID #### [facility] [address] [place] [address] Dr. Celsa Patterson Anion gap [Moles/Vol] 14.4 mmol/L Normal [facility] Comment on above: Performed By: #### C MP, T7, TSH, LIPID #### [facility] [address] [place] [address] Dr. Celsa Patterson AST [Catalytic activity/Vol] 26 U/L Normal 15-37 [facility] Comment on above: Performed By: #### C MP, T7, TSH, LIPID #### [facility] [address] [place] [address] Dr. Celsa Patterson Bilirubin [Mass/Vol] 0.5 mg/dL Normal 0.2-1.0 [facility] Comment on above: Performed By: #### C MP, T7, TSH, LIPID #### [facility] [address] [place] [address] Dr. Celsa Patterson Calcium [Mass/Vol] 9.4 mg/dL Normal 8.5-10.1 [facility] Comment on above: Performed By: #### C MP, T7, TSH, LIPID #### [facility] [address] [place] [address] [address] Celsa Patterson Chloride [Moles/Vol] 104 mmol/L Normal 98-107 [facility] Comment on above: Performed By: #### C MP, T7, TSH, LIPID #### [facility] [address] [place] [address] [address] Celsa Patterson CO2 [Moles/Vol] 27.8 mmol/L Normal 21.0-32.0 [facility] Comment on above: Performed By: #### C MP, T7, TSH, LIPID #### [facility] [address] [place] [address] [address] Celsa Patterson Creatinine [Mass/Vol] 1.04 mg/dL Critically high 0.55-1.02 [facility] Comment on above: Performed By: #### C MP, T7, TSH, LIPID #### [facility] [address] [place] [address] Dr. Celsa Patterson EGFR-AF ARMENIAN >60 Normal >=60 [facility] Comment on above: Performed By: #### C MP, T7, TSH, LIPID #### [facility] [address] [place] [address] [address] Celsa Patterson EGFR-NON AF ARMENIAN 55 mL/min/1.73m2 Critically low >=60 [facility] Comment on above: Performed By: #### C MP, T7, TSH, LIPID #### [facility] [address] [place] [address] [address] Celsa Patterson Globulin (S) [Mass/Vol] 3.5 g/dL Normal [facility] Comment on above: Performed By: #### C MP, T7, TSH, LIPID #### [facility] [address] [place] [address] [address] Celsa Patterson Glucose [Mass/Vol] 84 mg/dL Normal 74-106 [facility] Comment on above: Performed By: #### C MP, T7, TSH, LIPID #### [facility] [address] [place] [address] [address] Celsa Patterson Potassium [Moles/Vol] 4.2 mmol/L Normal 3.5-5.1 [facility] Comment on above: Performed By: #### C MP, T7, TSH, LIPID #### [facility] [address] [place] [address] [address] Celsa Patterson Protein [Mass/Vol] 7.8 g/dL Normal 6.4-8.2 [facility] Comment on above: Performed By: #### C MP, T7, TSH, LIPID #### [facility] [address] [place] [address] Dr. Celsa Patterson Sodium [Moles/Vol] 142 mmol/L Normal 136-145 [facility] Comment on above: Performed By: #### C MP, T7, TSH, LIPID #### [facility] [address] [place] [address] Dr. Celsa Patterson Urea nitrogen [Mass/Vol] 20.0 mg/dL Critically high 7.0-18.0 [facility] Comment on above: Performed By: #### C MP, T7, TSH, LIPID #### [facility] [address] [place] [address] Dr. Celsa Patterson Urea nitrogen/Creatinine [Mass ratio] 19.2 mg/mg Normal [facility] Comment on above: Performed By: #### C MP, T7, TSH, LIPID #### [facility] [address] [place] [address] Dr. Celsa Patterson TSHon 11-11-2022 TSH 3.238 uIU/mL Normal 0.358-3.740 [facility] Comment on above: Performed By: #### C MP, T7, TSH, LIPID #### [facility] [address] [place] [address] Dr. Celsa Patterson VITAMIN D 25 OHon 11-11-2022 VIT D 25-OH 12.1 ng/mL Normal [facility] Comment on above: Performed By: #### I CRIS, VITAD #### [facility] [address] [place] [address] Dr. Celsa Patterson VIT D RANGES SEE BELOW Normal [facility] Comment on above: Result Comment: <20 ng/mL Vit D deficient 20 - <30 ng/mL Vit D insufficient 30 - 100 ng/mL Vit D sufficient >100 ng/mL Potential Toxicity Performed By: #### I CRIS, VITAD #### [facility] [address] [place] [address] [address] Celsa Patterson MG MAMM SCREEN 3D COURTNEY CADon 07-18-2022 MG MAMM SCREEN 3D COURTNEY CAD Patient: BELKYS HERNANDEZ Exam Date: 07/18/2022 : 1965 Gender:F Ordering : DR MILDRED GALDAMEZ . Admission #: [id number] Family : Order #: [id number] CLICK HERE TO VIEW EXAM RADIOLOGY REPORT [...] liver cancer at age 67. LOCATION: [facility] BREAST COMPOSITION: Heterogeneously dense,which may obscure [...] M.D. on 07/18/2022 at 11:07 Normal [facility] COVID-19 Antigenon 2 COVID-19 Antigen Healthcare Worker?: [...] developed and its performance characteristic determined by [employer] and validated at [facility]. This test has not been FDA cleared [...] for SARS Antigen by [employer] PERFORMED BY: [place] [address] PATHOLOGIST [employer] JENNI HERNANDEZ M.D. Normal [facility] Comment on above: Performed By: #### S OFANNAEG, COVID-19 DENISSE #### [facility] [address] Denisse Ag Negativeon 05-16-20 22 Denisse Ag Negative Negative Normal Negative [facility] Comment on above: Result Comment: This is a duplicate Denisse SARS Antigen ([employer]) result to be used for statistical tracking purpose only. PERFORMED BY: [facility] [address] [place] [address] PATHOLOGIST [employer] JENNI HERNANDEZ M.D. Performed By: #### S OFLAUREN, COVID-19 DENISSE #### [facility] [address] Encounters Encounter Date Encounter Type Care Provider Facility Start: 11-16-2022 Encounter for genera l adult medical examination without abnormal findings DR MILDRED GALDAMEZ [facility] Start: 11-11-2022 End: 11-12-[address] MILDRED GALDAMEZ Facility:[facility] Start: 11-11-2022 End: 11-12-2022 Encounter for general adult medical examination without abnormal findings DR MILDRED GALDAMEZ Facility:[facility] Start: 07-18-2022 End: 07-19-[address] MILDRED GALDAMEZ Facility:[facility] Payers Date Payer Category Payer Unknown [id number] 1965 Unknown [id number] 1957 Unknown [id number] Summary Purpose Family History No Family History Records FoundNo Family History Records Found Advance Directives No Advanced Directives Records FoundNo Advanced Directives Records Found Additional Source Comments INFORMATION SOURCE (unrecogn ized section and content) DATE CREATED AUTHOR 05/23/2022 [facility] DATE CREATED AUTHOR AUTHOR'S SANA ATION 11/18/2022 [facility] FOR RECORDS PERTAINING TO PATIENTS WHO ARE [...] BE BASED ON THE PRIMARY CLINICAL RECORDS. [employer] provides no warranty or guarantee of the accuracy or completeness of information in this document.
[2025-01-17 11:02] LABS: Basophils Percent Auto 0.6 % (0.2-2.0); Eosinophils Absolute Auto 0.1 10^3/uL (0.0-0.7); Eosinophils Percent Auto 1.4 % (0.9-7.0); Hematocrit 45.6 % (36.0-48.0); Hemoglobin 14.5 g/dL (12.0-16.0); Immature Granulocytes Abs Auto 0.03 10^3/uL (0.00-0.03); Immature Granulocytes Pct Auto 0.5 % (0.0-0.5); Lymphocytes Absolute Auto 1.1 10^3/uL (1.2-3.8); Lymphocytes Percent Auto 16.7 % (20.5-60.0); Mean Corpuscular HGB Conc 31.8 g/dL (29.9-35.2); Mean Corpuscular Hemoglobin 29.2 pg (26.7-34.0); Mean Corpuscular Volume 91.8 fL (81.0-99.0); Mean Platelet Volume 9.6 fL (9.5-13.5); Monocytes Absolute Auto 0.5 10^3/uL (0.3-0.8); Monocytes Percent Auto 7.6 % (1.7-12.0); Neutrophils Absolute Auto 4.8 10^3/uL (1.4-6.5); Neutrophils Percent Auto 73.2 % (43.0-75.0); Platelet Count 254 10^3/uL (150-450); Red Blood Count 4.97 10^6/uL (4.20-5.40); Red Cell Distribution Width 13.3 % (11.0-15.0); White Blood Count 6.6 10^3/uL (4.0-11.0)
[2025-01-17 11:20] LABS: Estimated Average Glucose 111 mg/dL; Glycohemoglobin A1C 5.5 % (4.5-6.2)
[2025-01-17 11:51] LABS: Alanine Aminotransferase 62 U/L (14-59); Albumin Globulin Ratio 1.1; Albumin Level 3.9 g/dL (3.4-5.0); Alkaline Phosphatase 137 U/L (46-116); Aspartate Amino Transferase 30 U/L (15-37); BUN Creatinine Ratio 12.4; Bilirubin Total 0.4 mg/dL (0.2-1.0); Calcium 9.4 mg/dL (8.5-10.1); Carbon Dioxide 28.3 mmol/L (21.0-32.0); Chloride 106 mmol/L (98-107); Chol HDL Ratio 4.6; Cholesterol 234 mg/dL (<=200); Estimated GFR (African America >60 (>=60 mL/min/1.73m^2); Estimated GFR (Non-African Ame 50 (>=60 mL/min/1.73m^2); Globulin 3.7 g/dL; Glucose 92 mg/dL (74-106); HDL Cholesterol 51 mg/dL (40-60); Potassium 4.3 mmol/L (3.5-5.1); Sodium 143 mmol/L (136-145); Thyroid Stimulating Hormone 2.045 uIU/mL (0.358-3.740); Total Protein 7.6 g/dL (6.4-8.2); Triglycerides 238 mg/dL (<=150); VLDL CHOLESTEROL 47.6 mg/dL
== END 2025-01-17 10:34 | disposition home or self-care (01) ==
PROVIDERS: PCP Family Medicine; Visit Provider Family Medicine
DX: Z00.00 Encounter for general adult medical examination without abnormal findings (principal)
CPT/HCPCS: 36415; 80053; 80061; 83036; 84436; 84443; 84481; 85025

== ENCOUNTER 2025-01-23 13:01 | Outpatient (OUT) | payer BC, SELFPAY ==
[2025-01-23 13:38] LABS: Alanine Aminotransferase 68 U/L (14-59); Albumin Globulin Ratio 1.1; Alkaline Phosphatase 127 U/L (46-116); Amylase 51 U/L (25-115); Anion Gap 12.4; Aspartate Amino Transferase 30 U/L (15-37); BUN Creatinine Ratio 16.7; Bilirubin Total 0.5 mg/dL (0.2-1.0); Calcium 9.4 mg/dL (8.5-10.1); Carbon Dioxide 27.9 mmol/L (21.0-32.0); Chloride 101 mmol/L (98-107); Estimated GFR (African America >60 (>=60 mL/min/1.73m^2); Estimated GFR (Non-African Ame 56 (>=60 mL/min/1.73m^2); Globulin 3.6 g/dL; Glucose 86 mg/dL (74-106); Potassium 4.3 mmol/L (3.5-5.1); Sodium 137 mmol/L (136-145); Total Protein 7.6 g/dL (6.4-8.2)
[2025-01-23 13:44] LABS: INR 1.07; Prothrombin Time 11.3 sec (9.0-11.6)
[2025-01-24 05:07] LABS: HBsAg Screen Negative (Negative); HCV Ab Non Reactive (Non Reactive); Hep A Ab, IgM Negative (Negative); Hep B Core Ab, IgM Negative (Negative)
== END 2025-01-23 13:02 | disposition home or self-care (01) ==
LOC: LAB 13:03
PROVIDERS: PCP Family Medicine; Visit Provider Family Medicine
DX: R74.8 Abnormal levels of other serum enzymes (principal)
CPT/HCPCS: 36415; 80053; 80074; 82150; 83690; 85610; 85730

== ENCOUNTER 2025-02-04 12:54 | Outpatient (OUT) | payer BC, SELFPAY ==
--- NOTE | 2025-02-04 12:57 | US_ITS ---
[place] [id number] Patient Name: BELKYS HERNANDEZ MRN: [id number] date: 1965 Sex: F Assigned Patient Location: US Current Patient Location: US Accession/Order Number: [id number] Exam Date: 02/04/2025 14:06 Report Date: 02/04/2025 14:08 At the request of: MILDRED GALDAMEZ MD Procedure: US right upper quadrant LIMITED ABDOMINAL ULTRASOUND: CLINICAL HISTORY: Fatty Liver K76.0 COMPARISON: Ultrasound 11/30/2023 TECHNIQUE: Grayscale and color Doppler images of the right upper quadrant organs were obtained. FINDINGS: Pancreas: Visualized portions appear unremarkable. Liver: Fatty infiltration. No focal mass or intrahepatic bile duct dilatation. Hepatopedal flow is seen within the portal vein. Gallbladder: Unremarkable. CBD: 2.3 mm US/US right upper quadrant IMPRESSION: FATTY INFILTRATION OF THE LIVER. NO ACUTE PROCESS.. Impression dictated by: Jeyson Portillo Jr. [email or web address]/04/2025 2:08 PM Dictation Location: [place] [address] Electronically authenticated by: [id number] Y Date: 02/04/2025 14:08
== END 2025-02-04 12:55 | disposition home or self-care (01) ==
LOC: US 12:54
PROVIDERS: PCP Family Medicine; Visit Provider Family Medicine
DX: K76.0 Fatty (change of) liver, not elsewhere classified (principal)
CPT/HCPCS: 76705

== ENCOUNTER 2025-09-23 16:28 | Outpatient (OUT) | payer BC, SELFPAY ==
--- NOTE | 2025-09-23 | MM_ITS ---
Patient Name: BELKYS HERNANDEZ MR#: [id number] : 1965 Exam Date: 09/23/2025 Ordering Doctor: DR MILDRED GALDAMEZ . RADIOLOGY REPORT PROCEDURE: MM TOMOSYNTHESIS SCREENING BI COMPARISON: MM TOMOSYNTHESIS SCREENING BI, 08/15/2024. MM TOMOSYNTHESIS SCREENING BI, 07/20/2023. MG MAMM SCREEN 3D COURTNEY CAD, 07/18/2022. MG MAMM COURTNEY SCRN W CAD DIG, 11/14/2013. INDICATIONS: Screening mammogram Calculator Name NCI Breast Cancer Risk Assessment Tool 5 Year Breast Cancer Risk 2.00% Lifetime Breast Cancer Risk 11.50% Personal Breast Cancer No Personal Ovarian Cancer No Treatments None Family Cancers Grandmother-paternal with ovarian cancer at age ~72; Aunt-paternal with uterine cancer at age ~72; Mother with colon cancer at age ~75; Father with colon cancer at age ~64; Aunt-maternal with liver cancer at age ~65. LOCATION: [facility] BREAST COMPOSITION: The breasts are heterogeneously dense, which may obscure small masses. FINDINGS: RIGHT BREAST: No significant suspicious finding. LEFT BREAST: No significant suspicious finding. DIAGNOSTIC CATEGORY 1--NEGATIVE. RECOMMENDATIONS: ROUTINE MAMMOGRAM AND CLINICAL EVALUATION IN 12 MONTHS. Dictated by: Kuldip Bermeo DO on 09/24/2025 at 10:20 Approved by: Kuldip Bermeo DO on 09/24/2025 at 10:22
--- OUTSIDE RECORDS SUMMARY | 2025-09-23 16:32 | XMS_ITS | Patient Health Record ---
Author Organization [facility] in [place] Address [address] [place] [address] Care Team Providers Care Futures Trader Name Role Phone Moy Galdamez Primary Care Provider [phone] Allergies Allergen (clinical drug ingredient) Drug/Non Drug Allergy documented on EMR Reaction Allergy Type Onset Date Status AmoxilrashDrug AllergyActivePenicillinrash- childhoodDrug AllergyActive Results Component Value Reference Range Notes US right upper quadrant Reviewed date:02/04/2025 03:39:26 PM Interpretation: Performing Lab: Notes/Report: Source Facility: [place] [address] Ultrasound Report Signed Patient: BELKYS HERNANDEZ MR#: [id number] : 1965 Acct:[id number] Age/Sex: 59 / F ADM Date: 02/04/25 Loc: US Attending Dr: Mildred Galdamez M.D. Ordering Physician: Mildred Galdamez M.D. Date of Service: 02/04/25 Procedure(s): US right upper quadrant Accession Number(s): [id number] cc: Mildred Galdamez M.D. [place] [address] Patient Name: BELKYS HERNANDEZ MRN: [id number] date: 1965 Sex: F Assigned Patient Location: US Current Patient Location: US Accession/Order Number: [id number] Exam Date: 02/04/2025 14:06 Report Date: 02/04/2025 14:08 At the request of: MILDRED GALDAMEZ MD Procedure: US right upper quadrant LIMITED ABDOMINAL ULTRASOUND: CLINICAL HISTORY: Fatty Liver K76.0 COMPARISON: Ultrasound 11/30/2023 TECHNIQUE: Grayscale and color Doppler images of the right upper quadrant organs were obtained. FINDINGS: Pancreas: Visualized portions appear unremarkable. Liver: Fatty infiltration. No focal mass or intrahepatic bile duct dilatation. Hepatopedal flow is seen within the portal vein. Gallbladder: Unremarkable. CBD: 2.3 mm US/US right upper quadrant IMPRESSION: FATTY INFILTRATION OF THE LIVER. NO ACUTE PROCESS.. Impression dictated by: Jeyson Portillo Jr., D.O.02/04/2025 2:08 PM Dictation Location: [place] [address] Electronically authenticated by: [id number] Y Date: 02/04/2025 14:08 Dictated By: Jeyson Portillo M.D. Signed By: 02/04/25 1411 DD/ 1408 TD/TT: Lobster Man: CBC AUTO DIFF Reviewed date:01/19/2025 08:57:31 AM Interpretation: Performing Lab: Notes/Report: [facility] , White Blood Count 6.6 4.0-11.0 10 3/uL Red Blood Count4.974.20-5.40 10 6/tPFvsrhqvxmd92.512.0-16.0 g/jMFdjgvwooth88.6 36.0-48.0 %Mean Corpuscular Pegpzo45.881.0-99.0 fLMean Corpuscular Hemoglobin 29.226.7-34.0 pgMean Corpuscular HGB Conc31.829.9-35.2 g/dLRed Cell Distribution Width13.311.0-15.0 %Platelet Kwvrp646597-915 10 3/uLMean Platelet Volume9.69.5- 13.5 fLNeutrophils Percent Auto73.243.0-75.0 %Lymphocytes Percent Auto16.720.5- 60.0 %Monocytes Percent Auto7.61.7-12.0 %Eosinophils Percent Auto1.40.9-7.0 % Basophils Percent Auto0.60.2-2.0 %Immature Granulocytes Pct Auto0.50.0-0.5 % Neutrophils Absolute Auto4.81.4-6.5 10 3/uLLymphocytes Absolute Auto1.11.2-3.8 10 3/uLMonocytes Absolute Auto0.50.3-0.8 10 3/uLEosinophils Absolute Auto0.10.0- 0.7 10 3/uLBasophils Absolute Auto0.00.0-0.1 10 3/uLImmature Granulocytes Abs Auto0.030.00-0.03 10 3/uLPerforming Lab:see noteML - [facility] LB PROF 14(COMP METB) Reviewed date:01/23/2025 07:40:41 PM Interpretation: Performing Lab: Notes/Report: [facility] ,Ltumpr577879-928 mmol/LPotassium4.33.5-5.1 mmol/MXkgfolme35562-890 mmol/LCarbon Jrzsfhz76.921.0-32.0 mmol/LAnion Gap12.5Shyqrae6201-831 mg/dLBlood Urea Nitrogen 17.07.0-18.0 mg/dLCreatinine1.020.55-1.02 mg/dLEstimated GFR ( Charisma>60 >=60 mL/min/1.73m 2Estimated GFR (Non- Ame56>=60 mL/min/1.73m 2BUN Creatinine Ratio16.3Aatownk5.48.5-10.1 mg/dLBilirubin Total0.50.2-1.0 mg/dL Aspartate Amino Cksdyoojvpc7344-22 U/LAlanine Etpwqqghodxgwscu1750-13 U/L Alkaline Uaxmckegrtt90967-325 U/LTotal Protein7.66.4-8.2 g/dLAlbumin Level4.0 3.4-5.0 g/dLGlobulin3.6Albumin Globulin Ratio1.1Performing Lab:see noteML - [facility] LBAcute Hepatitis Reviewed date:01/24/2025 01:07:27 PM Interpretation: Performing Lab: Notes/Report: [facility] ,Hep A Ab, IgMNegativeNegative current HAV infection. A negative anti-HAV IgM result suggests no recent or HBsAg ScreenNegativeNegativeHep B Core Ab, IgMNegativeNegativeHCV AbNon Reactive Non ReactiveInterpretation:Comment. Not infected with HCV unless early or acute infection is infection. [address] [place] [phone] Budget Consultant: Placido Rich PhD, Phone: [phone] individual), or other evidence exists to indicate HCV Performed at: - [facility] [place] suspected (which may be delayed in an immunocompromised Performing Lab:see note - [facility] LBLIPASE Reviewed date:01/23/2025 07:40:41 PM Interpretation: Performing Lab: Notes/Report: [facility] ,Audnhi41.016.0-77.0 U/LPerforming Lab:see note - [facility] LB AMYLASE Reviewed date:01/23/2025 07:40:41 PM Interpretation: Performing Lab: Notes/Report: [facility] ,Aghllsy9790-543 U/LPerforming Lab:see note - [facility] LB Prothrombin Time INR Reviewed date:01/23/2025 07:40:41 PM Interpretation: Performing Lab: Notes/Report: [facility] ,Prothrombin Time11.39.0-11.6 secINR1.07 2.5-3.5 RECURRENT THROMBOSIS DESIRED INR: 2.0-3.0 CONDITIONS NOT LISTED BELOW 2.5-3.5 FOR PROSTHETIC HEART VALVE REPLACEMENT Performing Lab:see note - [facility] LBPTT Reviewed date:01/23/2025 07:40:41 PM Interpretation: Performing Lab: Notes/Report: [facility] ,Partial Thromboplastin Time34.022.3-36.2 secPerforming Lab:see noteML - [facility] LBTSH Reviewed date:01/19/2025 08:57:31 AM Interpretation: Performing Lab: Notes/Report: [facility] ,Thyroid Stimulating Hormone2.0450.358-3.740 uIU/mLPerforming Lab:see note - [facility] LBT4 Reviewed date:01/19/2025 08:57:31 AM Interpretation: Performing Lab: Notes/Report: [facility] ,T4 Thyroxine8.104.80-13.90 ug/dLPerforming Lab:see noteML - [facility] LBPROF 14(COMP METB) Reviewed date:01/19/2025 08:57:31 AM Interpretation: Performing Lab: Notes/Report: [facility] ,Gfvvjb263177-633 mmol/LPotassium4.33.5-5.1 mmol/HRyvmoozg74422-775 mmol/LCarbon Mlofmri16.321.0-32.0 mmol/LAnion Gap13.1Omgdkbj8093-754 mg/dLBlood Urea Nitrogen 14.07.0-18.0 mg/dLCreatinine1.130.55-1.02 mg/dLEstimated GFR ( Charisma>60 >=60 mL/min/1.73m 2Estimated GFR (Non- Ame50>=60 mL/min/1.73m 2BUN Creatinine Ratio12.6Liddvga4.48.5-10.1 mg/dLBilirubin Total0.40.2-1.0 mg/dL Aspartate Amino Dattwwzlxmh1911-58 U/LAlanine Nqwjzjvsskxxoqoh5315-66 U/L Alkaline Sghrvwjmruf58209-454 U/LTotal Protein7.66.4-8.2 g/dLAlbumin Level3.9 3.4-5.0 g/dLGlobulin3.7Albumin Globulin Ratio1.1Performing Lab:see noteML - [facility] LBLIPID PROFILE Reviewed date:01/19/2025 08:57:31 AM Interpretation: Performing Lab: Notes/Report: [facility] ,Vngeprxscquxm144<=150 mg/yRHycrqhcatrc083<=200 mg/dLHDL Lmgdjnsoftw4182-65 mg/dL <40 mg/dl - HIGH CARDIOVASCULAR RISK > or =60 mg/dl - LOW CARDIOVASCULAR RISK LDL Cholesterol Gvlzwlirpc439.0 <100 mg/dl OPTIMAL 100-129 mg/dl NEAR OR ABOVE OPTIMAL 130-159 mg/dl BORDERLINE HIGH 160-189 mg/dl HIGH >190 mg/dl VERY HIGH VLDL OYYFVOSPYFW79.6Chol HDL Ratio4.6 3.3 - 4.4 LOW RISK 7.1 - 11.0 MODERATE RISK >11.0 HIGH RISK 4.4 - 7.1 AVERAGE RISK Performing Lab:see noteML - [facility] LBGLYCOHEMOGLOBIN A1C Reviewed date:01/19/2025 08:57:31 AM Interpretation: Performing Lab: Notes/Report: [facility] ,Glycohemoglobin A1C5.54.5-6.2 % ACTION SUGGESTED > 7.0 ADA RECOMMENDED LIMIT 4.0 - 6.0 ADA THERAPEUTIC TARGET < 7.0 Estimated Average Vhvhxsc434Bgfwxvbwss Lab:see noteML - [facility] LB FREE T3 Reviewed date:01/19/2025 08:57:31 AM Interpretation: Performing Lab: Notes/Report: [facility] ,Free T32.702.18-3.98 pg/mLPerforming Lab:see noteML - [facility] LB Reason For Referral No Information Medications Medication SIG (Take, Route, Frequency, Duration) Notes Start Date End Date Status Triamcinolone Acetonide 0.1 % 1 application Exte rnally bid 5ActiveLisinopril 10 MG1 tablet Orally Once a day; Duration: 90 days 5ActiveVitamin D (Cholecalciferol) 50 MCG (1999 UT)1 capsule Orally Once a dayActiveVenlafaxine HCl ER 150 MG1 capsule Orally Once a day; Duration: 90 daysActiveARIPiprazole 2 MGTAKE ONE TABLET BY MOUTH ONCE A DAY; Duration: 30 daysActive Social History Tobacco Use: Social History Observation Description Date Details (start date - stop date) Never Smoker NA - NA Tobacco Use/Smoking Question Answer Notes Patient is a nonsmoker Alcohol Screen (Audit-C) Question Answer Notes Did you have a drink containing alcohol in the p ast year? Yes How often did you have 6 or more drinks on one occasion in the past year?Never (0 point)How many drinks did you have on a typical day when you were drinking in the past year?1 or 2 drinks (0 point)How often did you have a drink containing alcohol in the past year?Weekly (3 points)Hcyhtn9ZappklpvisezrqRsnrktmn Problems Problem Type SNOMED Code ICD Code Onset Dates Problem Status W/U Status Risk Notes Problem Hypertension (15216102) Hypertension (I10 ) ActiveconfirmedProblemFatty liver (033280266)Fatty liver (K76.0)Activeconfirmed ProblemWell adult (886339967)Well adult (Z00.00)ActiveconfirmedProblemOvarian cyst (18179201)Ovarian cyst (N83.209)Activeconfirmed Vital Signs Blood pressure diastolic 82 mm Hg 01/23/2025 Afapqq46 in01/23/2025lood pressure inpyicjr343 mm Hg01/23/20254445Ejlevz382.4 lbs 01/09/2025BMI24.69 kg/m201/09/2025 Encounters Encounter Location Date Provider Diagnosis [facility] [address] [place] [address] 01/17/[address] [facility] [address] [place] [address] 01/23/[address] [facility] [address] [place] [address] 01/09/2025 Moy Hoy Well adult Z00.[address] [facility] [address] [place] [address] 01/19/2025 Moy Hoy [facility] [place] [address] 01/23/2025[facility] [place] [address]/27/2025Doug HoyFatty liver K76.0[facility] [address] [place] [address]/09/2025Doug HoyFatty liver K76.0 [facility] [place] [address] 02/25/2025[facility] [place] [address]/08/2025[facility] [place] [address] [place] [address] [place] [address] [place] [address]/ Moy HoyAbnormal liver enzymes R74.8 Assessments Encounter Date Diagnosis (ICD Code) Assessment Notes Treatment Notes Treatment Clinical Notes Section Notes 01/09/2025 Well adult (ICD-10 - Z00.00) 01/17/2025Hypertension (ICD-10 - I10)01/23/2025Hypertension (ICD-10 - I10) 01/19/2025bnormal liver enzymes (ICD-10 - R74.8)01/23/2025Fatty liver (ICD-10 - K76.0)02/04/2025Fatty liver (ICD-10 - K76.0) Plan Of Treatment Pending Test Test Name Order Date CMP (COMPLETE METABOLIC PANEL) 3 HEMOGLOBIN A1C (GLYCO) 01/09/2025 HEMOGLOBIN A1C (GLYCO) 11/02/2023 LIPID PANEL (CHOL/TRIG/HDL/LDL) 01/09/20 25 LIPID PANEL (CHOL/TRIG/HDL/LDL) 11/02/20 23 CBC WITH DIFF 11/02/2023 CBC WITH DIFF 01/09/2025 US Liver 11/23/2023 CMP - Comprehensive Metabolic Panel 12/29 PT and PTT 01/19/2025 HEPATITIS PANEL, ACUTE 01/19/2025 HEPATITIS PANEL, ACUTE 11/13/2023 LIVER PROFILE 11/13/2023 THYROID PANEL (T4/TSH/FREE T3) 5 THYROID PANEL (T4/TSH/FREE T3) 3 FIBROSCAN PROCEDURE 02/04/2025 CMP (COMP MET MARISCAL) w/eGFR CKD-EPI 2024 Insurance Providers Payer Name Payer Address Payer Phone Subscriber Number Group Number Insured Name Patient Relationship to Insured Coverage Start Date Coverage End Date [employer] PPO PLUS LOCAL PLAN [address] [place] [address] [id number] Krunal Hernandez - patient is the insured Medical (General) History Medical History History ICD Code Well adult Z00.00 Hypertension I10 Ovarian cyst N83.209 Surgical History Surgery Date(Month/Year) left ovary cyst 2022 right breast biopsy 12/2020 colonoscopy 04/2022
--- OUTSIDE RECORDS SUMMARY | 2025-09-23 16:32 | XMS_ITS | CCD ---
Author Organization [facility] Care Team Providers Care Shelving Supervisor Name Role Phone DR MILDRED FAGAN Admitting Unavailable RUDOLPH, DR LEVY Primary Care Unavailable RUDOLPH, DR LEVY Consulting Unavailable RUDOLPH, DR LEVY Attending Unavailable DANTE, DR JOSE LUIS Clements Consulting Unavailable RUDOLPH, DR LEVY Primary Care Unavailable RUDOLPH, DR LEVY Consulting Unavailable RUDOLPH, DR LEVY Attending Unavailable RUDOLPH, DR LEVY Admitting Unavailable Mildred Fagan MD Primary Care Provider [phone] Mildred Fagan MD Referring Provider Fibroscan, Temporary Attending Provider Unavaila Mildred Sy Referring Unavailable Mildred Fagan Primary Care Unavailable Asaad, Imad Attending Unavailable Asaad, Imad Admitting Unavailable Allergies Allergy ClassificationReported Allergen(s)Allergy TypeDate of OnsetReaction(s) Facility (2 sources)PenicillinsDrug allergy (disorder)01-69-2934[facility]uuuAilT[facility] (2 sources)Penicillin G Procaine; Translations: [penicillin G procaine]Allergy to tegiainag11-87-9881szefeKqsfrtppfFisher-[facility]itus Medical Center (1 source)PenicillinsDrug allergy (disorder)08-02-6846SqwssbqapReg[facility] Repository Medications Current Medications MedicationDrug Class(es)DatesSig (Normalized)Sig (Original)hydrOXYzine hydrochloride 25 mg oral tablet (1 source)AntihistamineStart: 59-61-4222Iscfzltlgzo Hcl 25 mg tablet Active 25 MG PO As Directed as needed for Muscle Spasm May 172:00am24 hr venlafaxine 150 mg extended release oral capsule (1 source)Serotonin and Norepinephrine Reuptake InhibitorStart: 47-90-2983dxag 1 capsule by mouth once dailyVenlafaxine 150 mg capsule,extended release 24hr Active 150 MG PO Daily May 17, 2022 12:00am Problems Active Problems Problem ClassificationProblemDateDocumented DateEpisodic/ChronicOther liver diseases (1 source)Fatty (change of) liver, not elsewhere classified; Translations: [Fatty (change of) liver, not elsewhere classified]Onset: 43-29-5247Ftbuwym Past or Other Problems Problem ClassificationProblemDateDocumented DateEpisodic/ChronicOther screening for suspected conditions (not mental disorders or infectious disease) (4 sources)Encounter for screening mammogram for malignant neoplasm of breast; Translations: [ENC SCR MAMMO MALIG NEOPLASM BREAST]Onset: 29-07-2947Junyyfld Residual codes; unclassified (1 source)Family history of malignant neoplasm of ovary; Translations: [FAM HX MALIGNANT NEOPLASM OVARY]Onset: 92-25-8820GbiopgqoOzrrgqax codes; unclassified (1 source)Family history of malignant neoplasm of digestive organs; Translations: [FAM HX MALIG NEOPLASM DIGESTIV ORGN]Onset: 49-06-7753Tztbdode Residual codes; unclassified (1 source)Family history of malignant neoplasm of other organs or systems; Translations: [FAM HX MALIG NEOPLASM OTH ORGN/SYS]Onset: 12-58-3433Msuzghat Results Test NameValueInterpretationReference RangeFacilityCBC AUTO DIFFon 11-11-2022 BASO #0.0 103/ulNormal0.0-0.1[facility] CenterComment on above:Performed By: #### CBC #### [facility] [address] [place] [address] Dr. Celsa PattersonBasophils/100 WBC (Bld)0.5 %Normal0.2-2.0[facility] Comment on above:Performed By: #### CBC #### [facility] [address] [address] [address] Celsa Flores #0.1 103/ulNormal0.0-0.7The [facility] CenterComment on above: Performed By: #### CBC #### [facility] [address] [address] [address] Celsa Velasquezosinophils/100 WBC (Bld)1.0 %Normal0.9-7.0[facility] Comment on above:Performed By: #### CBC #### [facility] [address] [place] [address] Dr. Celsa Velasquezrythrocyte distribution width (RBC) [Ratio]13.4 %Zqbzvt93.0-15.0 [facility] CenterComment on above:Performed By: #### CBC #### [facility] [address] [place] [address] Dr. Celsa PattersonHematocrit (Bld) [Volume fraction]43.1 %Vxdzin62.0-48.0The [facility] CenterComment on above:Performed By: #### CBC #### [facility] [address] [place] [address] Dr. Celsa PattersonHemoglobin (Bld) [Mass/Vol]14.1 g/rIFkxlyz14.0-16.0The [facility] CenterComment on above:Performed By: #### CBC #### [facility] [address] [place] [address] Dr. Celsa Renner #0.03 10e3/ulNormal0.00-0.03The [facility] CenterComment on above:Performed By: #### CBC #### [facility] [address] [place] [address] Dr. Celsa Renner %0.5 %Normal0.0-0.5The [facility] CenterComment on above: Performed By: #### CBC #### [facility] [address] [place] [address] Dr. Celsa SowMPH #1.0 103/ulCritically low1.2-3.8[facility] Comment on above:Performed By: #### CBC #### [facility] [address] [place] [address] Dr. Celsa oSwmphocytes/100 WBC (Bld)15.8 %Critically low20.5-60.0The [facility] CenterComment on above:Performed By: #### CBC #### [facility] [address] [place] [address] Dr. Celsa Ng DIFF REQNONormalThe Regional Medical CenterComment on above: Performed By: #### CBC #### [facility] [address] [place] [address] Dr. Celsa Donaldson (RBC) [Entitic mass]29.0 fbZoyhcm44.7-34.0The [facility] CenterComment on above:Performed By: #### CBC #### [facility] [address] [place] [address] Dr. Celsa Donaldson (RBC) [Mass/Vol]32.7 g/xXLvxgkk27.9-35.2The [facility] CenterComment on above:Performed By: #### CBC #### [facility] [address] [place] [address] Dr. Celsa Sutton (RBC) [Entitic vol]88.7 sKEzxsen17.0-99.0The [facility] CenterComment on above:Performed By: #### CBC #### [facility] [address] [place] [address] Dr. Celsa Pierson #0.5 103/ulNormal0.3-0.8The [facility] CenterComment on above:Performed By: #### CBC #### [facility] [address] [place] [address] Dr. Celsa Garciaocytes/100 WBC (Bld)8.7 %Normal1.7-12.0[facility] Comment on above:Performed By: #### CBC #### [facility] [address] [place] [address] Dr. Celsa Pete #4.5 103/ulNormal1.4-6.5The [facility] CenterComment on above:Performed By: #### CBC #### [facility] [address] [place] [address] Dr. Celsa Richmondutrophils/100 WBC (Bld)73.5 %Ertitk04.0-75.0The [facility] CenterComment on above:Performed By: #### CBC #### [facility] [address] [address] [address] Celsa Collins mean volume (Bld) [Entitic vol]9.6 fLNormal9.5-13.5The [facility] CenterComment on above:Performed By: #### CBC #### [facility] [address] [place] [address] Dr. Celsa PattersonPLT259 103/ouAojckg780-441Dnh [facility] CenterComment on above: Performed By: #### CBC #### [facility] [address] [place] [address] Dr. Celsa PattersonRBC4.86 106/ulNormal4.20-5.40The [facility] CenterComment on above:Performed By: #### CBC #### [facility] [address] [place] [address] Dr. Celsa PattersonWBC6.1 103/ulNormal4.0-11.0The [facility] CenterComment on above: Performed By: #### CBC #### [facility] [address] [place] [address] Dr. Celsa PattersonFRJUDITH THYROXINE INDEX T7on 59-37-4598RNA5.61Tutupk0.30-4.50The [facility] CenterComment on above:Performed By: #### CMP, T7, TSH, LIPID #### [facility] [address] [place] [address] Dr. Celsa PattersonT3U30.0 %Tqgdpl65.0-39.0The [facility] CenterComment on above: Performed By: #### CMP, T7, TSH, LIPID #### [facility] [address] [place] [address] Dr. Celsa PattersonT4 [Mass/Vol]8.50 ug/dLNormal4.80-13.90[facility] Comment on above:Performed By: #### CMP, T7, TSH, LIPID #### [facility] [address] [place] [address] Dr. Celsa PattersonGLYCOHEMOGLOBIN A1Con 94-12-0567NMX RECOMMENDATIONSEE BELOWNormal The [facility] Medical CenterComment on above:Result Comment: ADA RECOMMENDED LIMIT 4.0 - 6.0 ADA THERAPEUTIC TARGET < 7.0 ACTION SUGGESTED > 7.0Performed By: #### A1C #### [facility] [address] [place] [address] Dr. Celsa PattersonGlucose [Mass/Vol]108 mg/dLParkview Health on above:Performed By: #### A1C #### [facility] [address] [place] [address] Dr. Celsa PattersonHbA1c (Bld) [Mass fraction]5.4 %Normal4.5-6.2The [facility] CenterComment on above:Performed By: #### A1C #### [facility] [address] [place] [address] Dr. Celsa Mclaughlin 51-65-3145Mpqk [Mass/Vol]76.0 ug/qSWsdcwo24.0-170.0The [facility] on above:Performed By: #### IRON, VITAD #### [facility] [address] [place] [address] Dr. Celsa GroverID PROFILEon 50-07-0040ROVW-HDL RATIO NORMSParkview HealthComascension providence hospital on above:Result Comment: 3.3 - 4.4 LOW RISK 4.4 - 7.1 AVERAGE RISK 7.1 - 11.0 MODERATE RISK >11.0 HIGH RISKPerformed By: #### CMP, T7, TSH, LIPID #### [facility] [address] [place] [address] Dr. Celsa PattersonCholesterol [Mass/Vol]227 mg/dLCritically high<=200The [facility] on above:Performed By: #### CMP, T7, TSH, LIPID #### [facility] [address] [place] [address] Dr. Celsa PattersonCholesterol in HDL [Mass/Vol]63 mg/dLCritically rkba41-73Yet [facility] on above:Performed By: #### CMP, T7, TSH, LIPID #### [facility] [address] [place] [address] Dr. Celsa Cheungesterol in LDL [Mass/Vol]138.0 mg/dLGlenbeigh HospitalComment on above:Performed By: #### CMP, T7, TSH, LIPID #### [facility] [address] [place] [address] Dr. Celsa Maharaj.total/Cholesterol in HDL [Mass ratio]3.6 {ratio} NormalThe Regional Medical CenterComment on above:Performed By: #### CMP, T7, TSH, LIPID #### [facility] [address] [place] [address] Dr. Celsa Shrestha NORMAL> or = 60 mg/dl - LOW CARDIOVASCULAR RISK <40 mg/dl - HIGH CARDIOVASCULAR RISKGlenbeigh HospitalComment on above:Performed By: #### CMP, T7, TSH, LIPID #### [facility] [address] [place] [address] Dr. Celsa Ann CALC NORMALSEE BELOWNoSalem Regional Medical CenterComment on above:Result Comment: <100 mg/dl OPTIMAL 100 - 129 mg/dl NEAR OR ABOVE OPTIMAL 130 - 159 mg/dl BORDERLINE HIGH 160 - 189 mg/dl HIGH >190 mg/dl VERY HIGH Performed By: #### CMP, T7, TSH, LIPID #### [facility] [address] [place] [address] Dr. Celsa PattersonTriglyceride [Mass/Vol]130 mg/dLNormal<=150[facility] Comment on above:Performed By: #### CMP, T7, TSH, LIPID #### [facility] [address] [place] [address] Dr. Celsa PattersonVLDL CALC26.0 mg/dLNoSalem Regional Medical CenterComment on above: Performed By: #### CMP, T7, TSH, LIPID #### [facility] [address] [place] [address] Dr. Celsa PattersonPROElias 14(COMP METB)on 47-82-1331Rqstdka [Mass/Vol]4.3 g/dLNormal 3.4-5.0The [facility] CenterComment on above:Performed By: #### CMP, T7, TSH, LIPID #### [facility] [address] [address] [address] Celsa PattersonAlbumin/Globulin [Mass ratio]1.2 {ratio}NormalThe Regional Medical CenterComment on above:Performed By: #### CMP, T7, TSH, LIPID #### [facility] [address] [address] [address] Celsa CarlisleP [Catalytic activity/Vol]126 U/LCritically htqg90-229Tqj [facility] CenterComment on above:Performed By: #### CMP, T7, TSH, LIPID #### [facility] [address] [address] [address] Celsa Fonseca [Catalytic activity/Vol]43 U/RDdftjx66-59Tld [facility] CenterComment on above:Performed By: #### CMP, T7, TSH, LIPID #### [facility] [address] [place] [address] Dr. Celsa Meehanon gap [Moles/Vol]14.4 mmol/LNormalThe [facility] Comment on above:Performed By: #### CMP, T7, TSH, LIPID #### [facility] [address] [place] [address] Dr. Celsa PattersonAST [Catalytic activity/Vol]26 U/JZlcrtv81-84Kzr [facility] CenterComment on above:Performed By: #### CMP, T7, TSH, LIPID #### [facility] [address] [place] [address] Dr. Celsa PattersonBilirubin [Mass/Vol]0.5 mg/dLNormal0.2-1.0[facility] Comment on above:Performed By: #### CMP, T7, TSH, LIPID #### [facility] [address] [place] [address] Dr. Celsa PattersonCalcium [Mass/Vol]9.4 mg/dLNormal8.5-10.1[facility] Comment on above:Performed By: #### CMP, T7, TSH, LIPID #### [facility] [address] [place] [address] Dr. Celsa PattersonChloride [Moles/Vol]104 mmol/PKujhur69-064Nce [facility] Comment on above:Performed By: #### CMP, T7, TSH, LIPID #### [facility] [address] [place] [address] Dr. Celsa PattersonCO2 [Moles/Vol]27.8 mmol/XFkwpwr53.0-32.0[facility] Comment on above:Performed By: #### CMP, T7, TSH, LIPID #### [facility] [address] [place] [address] Dr. Celsa PattersonCreatinine [Mass/Vol]1.04 mg/dLCritically high0.55-1.02[facility] CenterComment on above:Performed By: #### CMP, T7, TSH, LIPID #### [facility] [address] [place] [address] Dr. Celsa VelasquezGFR-AF UGANDAN>60Normal>=60The [facility] CenterComment on above:Performed By: #### CMP, T7, TSH, LIPID #### [facility] [address] [place] [address] Dr. Celsa VelasquezGFR-NON AF OWIGMZFU42 mL/min/1.93i9Ubnccormuk low>=60[facility] CenterComment on above:Performed By: #### CMP, T7, TSH, LIPID #### [facility] [address] [place] [address] Dr. Celsa PattersonGlobulin (S) [Mass/Vol]3.5 g/dLNormalThe [facility] Medical CenterComment on above:Performed By: #### CMP, T7, TSH, LIPID #### [facility] [address] [place] [address] Dr. Celsa PattersonGlucose [Mass/Vol]84 mg/gONbovsc48-552PjpTrinity Health System [facility] Comment on above:Performed By: #### CMP, T7, TSH, LIPID #### [facility] [address] [place] [address] Dr. Celsa PattersonPotassium [Moles/Vol]4.2 mmol/LNormal3.5-5.1[facility] Comment on above:Performed By: #### CMP, T7, TSH, LIPID #### [facility] [address] [address] [address] Celsa PattersonProtein [Mass/Vol]7.8 g/dLNormal6.4-8.2[facility] Comment on above:Performed By: #### CMP, T7, TSH, LIPID #### [facility] [address] [place] [address] Dr. Celsa PattersonSodium [Moles/Vol]142 mmol/OVptphe610-167Azx [facility] Comment on above:Performed By: #### CMP, T7, TSH, LIPID #### [facility] [address] [place] [address] Dr. Celsa PattersonUrea nitrogen [Mass/Vol]20.0 mg/dLCritically high7.0-18.0The [facility] CenterComment on above:Performed By: #### CMP, T7, TSH, LIPID #### [facility] [address] [place] [address] Dr. Celsa Melgar nitrogen/Creatinine [Mass ratio]19.2 mg/mgNoSalem Regional Medical CenterComment on above:Performed By: #### CMP, T7, TSH, LIPID #### [facility] [address] [place] [address] Dr. Celsa Kearney 65-29-1221AOP3.238 uIU/mLNormal0.358-3.740[facility] CenterComment on above:Performed By: #### CMP, T7, TSH, LIPID #### [facility] [address] [place] [address] Dr. Celsa PattersonVITAMIN D 25 OHon 83-33-9322CXF D 25-OH12.1 ng/mLNormalThe [facility] Medical CenterComment on above:Performed By: #### IRON, VITAD #### [facility] [address] [place] [address] Dr. Celsa Linda D RANGESSEE BELOWGlenbeigh HospitalComment on above: Result Comment: <20 ng/mL Vit D deficient 20 - <30 ng/mL Vit D insufficient 30 - 100 ng/mL Vit D sufficient >100 ng/mL Potential ToxicityPerformed By: #### IRON, VITAD #### [facility] [address] [address] [address] Celsa PattersonMG MAMM SCREEN 3D COURTNEY CADon 56-50-4723BR MAMM SCREEN 3D COURTNEY CAD Patient: BELKYS DOMINGUEZ Exam Date: 07/18/2022 : 1965 Gender:F Ordering : DR MILDRED FAGAN . Admission #: [id number] Family : Order #: [id number] CLICK HERE TO VIEW EXAM RADIOLOGY REPORT [...] liver cancer at age 67. LOCATION: [facility] BREAST COMPOSITION: Heterogeneously dense,which may [...] Jose Luis Waddell M.D. on 07/18/2022 at 11:07[facility] Encounters Encounter DateEncounter TypeCare ProviderFacilityStart: 02-13-2025 End: 21-08-3235[place] encounter procedureDojayme Fagan MD Work Phone: [facility] Work Phone: Start: 02-13-2025 End: 53-85-3813cmvjobbfovQxmwszk M Hoy MD Work Phone: [facility] Work Phone: Start: 86-63-8748Djvhyigfz for general adult medical examination without abnormal findingsDR MILDRED RITAYThe [facility] HospitalStart: 11-11-2022 End: 61-44-9009emupsaltrvOC MILDRED HOYFacility:N9Jiuxt: 11-11-2022 End: 98-29-1287Hmuylmtzn for general adult medical examination without abnormal findingsDR MILDRED HOYFacility:M1Qvimj: 07-18-2022 End: 56-09-1790aiojvlqsmqSM MILDRED HOYFacility:H1 Procedures DateProcedureProcedure DetailPerforming ClinicianStart: 84-35-3063Qmqkrnocdt elastography of liverMildred Fagan MD Work Phone: Plan of Treatment DateCare ActivityDetailAuthorStart: 03-92-7993KhwzjwhczRegency Hospital [facility] Immunizations Immunization DateImmunizationNotesCare LoecsybiJmqoghkp00-35-6493OBNPE-66 mRNA Comirnatblanquita (Pfizer)Mildred Fagan MD Work Phone: [facility]04-17-2021COVID-19 mRNA Comosmaninatblanquita (Pfizer)Mildred Fagan MD Work Phone: [facility]03-27-2021COVID-19 Balbir Ortiz (Pfizer)Mildred Fagan MD Work Phone: [facility] Payers DatePayer CategoryPayerPolicy [id number] [id number] Social History DateTypeDetailFacilityTobacco smoking status NHISUnknown if ever smokedPromedica Def[facility]tr Work Phone: Start: 62-81-2904QjgVymfkd (finding)[facility] Cincinnatitart: 50-36-7417Uoy Assigned At [facility] Evaluation note Note Date & TypeNoteFacilityEvaluation noteNo assessment information available [facility] Work Phone: Summary Purpose Family History No Family History Records Found Relationship Condition Age at Onset Recorded Date/T ziggy father Malignant neoplasm of colon Unknown HypertensionUnknownmotherMalignant neoplasm of colonUnknownAtrial fibrillation UnknownfatherMalignant neoplasmUnknownDeceasedUnknownmotherMalignant neoplasm Unknown Advance Directives No Advanced Directives Records Found Advance Directive Response Recorded Date/ Time Advance Directives No December 5:06pm Chief Complaint and Reason for Visit Chief Complaint Admit Date Fatty Liver February 13, 2025 1:2 6pm Additional Source Comments INFORMATION SOURCE (unrecogn ized section and content) DATE CREATED AUTHOR 11/18/2022 [facility] DATE CREATED AUTHOR AUTHOR'S ORGANIZ ATION 02/22/2025 [facility] Care Teams (unrecognized sec tion and content) Team Status: Active Member Role Status Dates Mildred Fagan MD Primary Care Provider Active Team Status: Inactive Member Role Status Dates Mildred Fagan MD Primary Care Provide r, Referring Provider Active Start: February 13, 2025 End: February 13, 2025Temporary FibroscanAttending ProviderActiveStart: February 13, 2025 End: February 13, 2025 Goals (unrecognized section and content) Goals may be documented in a n alternate section FOR RECORDS PERTAINING TO PATIENTS WHO ARE [...] BE BASED ON THE PRIMARY CLINICAL RECORDS. [facility] [employer] [facility]. provides no warranty or guarantee of the accuracy or completeness of information in this document.
--- OUTSIDE RECORDS SUMMARY | 2025-09-23 16:32 | XMS_ITS | Clinical Summary ---
Author Organization [facility] Address [address], [address] [place] [address] Care Team Providers Care Counter Supervisor Name Role Phone Unavailable Primary Care Provider Unavailabl e Immunizations ImmunizationAdministration DatesNext DueInfluenza Vaccine, unspecified esgxsyepoib69/05/2016 Social History Tobacco UseTypesPacks/DayYears UsedDateSmoking Tobacco: Never Assessed CommentsUnknownSex and Gender InformationValueDate RecordedSex Assigned at Not on fileLegal WeoMjgscc69/10/2013 12:49 PM ESTGender IdentityNot on file Sexual OrientationNot on file Last Filed Vital Signs Vital SignReadingTime TakenCommentsBlood Pressure--Pulse--Temperature-- Respiratory Rate--Oxygen Saturation--Inhaled Oxygen Concentration--Midfrx27.8 kg (134 lb)06/29/2020 11:59 AM EDTHeight--Body Mass Index-- Plan of Treatment Not on file
== END 2025-09-23 16:29 | disposition home or self-care (01) ==
LOC: MAMMO 16:28
PROVIDERS: PCP Family Medicine; Visit Provider Family Medicine
DX: Z12.31 Encounter for screening mammogram for malignant neoplasm of breast (principal); Z80.41 Family history of malignant neoplasm of ovary; Z80.0 Family history of malignant neoplasm of digestive organs; Z80.8 Family history of malignant neoplasm of other organs or systems
CPT/HCPCS: 77063; 77067